=== PATIENT | male | born 1945 | race Caucasian/White ===

== ENCOUNTER 2017-03-11 16:44 | Emergency (ER) | payer MEDICARE, MEDICAID ==
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
[2017-03-11 17:37] LABS: % BASOPHILS 1.3 % (0.0-2.0); % EOSINOPHILS 2.2 % (0.0-5.0); % LYMPHOCYTES 26.3 % (20.0-50.0); % NEUTROPHILS 56.2 % (40.0-80.0); HEMATOCRIT 45.2 % (39.0-49.0); MEAN CELL VOLUME 94.6 fl (80-99); MEAN CORPUSCULAR HEMOGLOBIN 31.4 pg (27.0-31.0); MEAN CORPUSCULAR HGB CONC 33.2 pg (28.0-36.0); NEUTROPHILE ABSOLUTE 4.3 Th/cmm (1.8-8.0); PLATELET COUNT 115 Th/cmm (150-400); RED BLOOD COUNT 4.78 Mil/cmm (3.80-5.80); RED CELL DISTRIBUTION WIDTH 14.7 % (11.5-20.0)
[2017-03-11 17:38] LABS: WHITE BLOOD COUNT 7.7 Th/cmm (4.8-10.8)
[2017-03-11 17:57] LABS: ALB/GLOB RATIO 1.1 (1.0-1.8); ANION GAP 12.1 (7.0-16.0); BILIRUBIN,TOTAL 0.7 mg/dL (0.3-1.0); BUN/CREATININE RATIO 18.8; CALCIUM SERUM 9.4 mg/dL (8.6-10.3); CARBON DIOXIDE 24.2 mEq/L (21.0-31.0); CREATININE - SERUM 1.6 mg/dL (0.7-1.3); POTASSIUM SERUM 4.3 mEq/L (3.5-5.1)
[2017-03-11 18:09] LABS: URINE BACTERIA NONE SEEN /hpf (NONE SEEN); URINE BILIRUBIN NEGATIVE (NEGATIVE); URINE BLOOD TRACE (NEGATIVE); URINE COLOR YELLOW; URINE EPITHELIAL CELLS RARE /lpf (FEW); URINE GLUCOSE (UA) NEGATIVE (NEGATIVE); URINE KETONE NEGATIVE (NEGATIVE); URINE PROTEIN NEGATIVE (NEGATIVE); URINE RBC NONE SEEN /hpf (0-5); URINE UROBILINOGEN 0.2 E.U./dL (0.2 - 1.0); URINE WBC 0-2 /hpf (0-5)
== END 2017-03-11 19:20 | disposition home or self-care (01) ==
LOC: ER 16:44
DX: S50.811A Abrasion of right forearm, initial encounter (principal); S80.211A Abrasion, right knee, initial encounter; G40.909 Epilepsy, unspecified, not intractable, without status epilepticus; W19.XXXA Unspecified fall, initial encounter; Y93.89 Activity, other specified; Y92.89 Other specified places as the place of occurrence of the external cause; Y99.8 Other external cause status
CPT/HCPCS: 36415-UA; 80053-TC; 80164-TC; 81001-TC; 85025-TC; Z7502

== ENCOUNTER 2018-08-29 21:43 | Emergency (ER) | payer MEDICARE, MEDICAID ==
[2018-08-29 22:05] LABS: % BASOPHILS 0.6 % (0.0-2.0); % EOSINOPHILS 4.2 % (0.0-5.0); % LYMPHOCYTES 29.7 % (20.0-50.0); % MONOCYTES 13.9 % (2.0-10.0); % NEUTROPHILS 51.6 % (40.0-80.0); BASOPHILE ABSOLUTE 0.1 Th/cumm (0-0.2); EOSINOPHILE ABSOLUTE 0.4 Th/cmm (0.1-0.4); HEMATOCRIT 45.3 % (41.0-60); HEMOGLOBIN 14.7 gm/dL (12-16); LYMPHOCYTE ABSOLUTE 2.7 Th/cmm (1.5-3.0); MEAN CELL VOLUME 94.8 fl (80-99); MEAN CORPUSCULAR HEMOGLOBIN 30.7 pg (27.0-31.0); MEAN CORPUSCULAR HGB CONC 32.4 pg (28.0-36.0); MEAN PLATELET VOLUME 9.2 fl; MONOCYTE ABSOLUTE 1.3 Th/cmm (0.3-1.0); NEUTROPHILE ABSOLUTE 4.5 Th/cmm (1.8-8.0); PLATELET COUNT 139 Th/cmm (150-400); RED BLOOD COUNT 4.79 Mil/cmm (3.80-5.80); RED CELL DISTRIBUTION WIDTH 14.4 % (11.5-20.0)
[2018-08-29 22:19] LABS: ALBUMIN 3.6 gm/dL (4.2-5.5); ALKALINE PHOSPHATASE 74 U/L (34-104); ANION GAP 11.8 (7.0-16.0); BILIRUBIN,TOTAL 0.3 mg/dL (0.3-1.0); BUN - UREA NITROGEN 39 mg/dL (7-25); CALCIUM SERUM 9.2 mg/dL (8.6-10.3); CARBON DIOXIDE 25.6 mEq/L (21.0-31.0); CHLORIDE 108 mEq/L (98-107); CREATININE - SERUM 1.4 mg/dL (0.7-1.3); GLUCOSE 105 mg/dL (70-105); POTASSIUM SERUM 4.4 mEq/L (3.5-5.1); SGOT 17 U/L (13-39); SGPT/ALT 7 U/L (7-52); SODIUM SERUM 141 mEq/L (136-145); TOTAL PROTEIN,SERUM 7.2 gm/dL (6.0-8.3)
--- NOTE | 2018-08-29 23:21 | ED Physician Chart ---
ED Chief Complaint/HPI - Patient Information Date Seen:: 08/29/18 Time Seen:: 23:16 Chief Complaint:: agitation combativeness eg pains swelling History of Present Illness:: 73 yr old male from the snf for agitation cambativenes and leg swellig Allergies:: Allergies Allergy/AdvReac Type Severity Reaction Status Date / Time No Known Allergies Allergy Verified 03/11/17 17:05 Vitals:: Vital Signs - 8 hr 08/29/18 21:45 Temp 98.0 F HR 68 RR 17 BP 104/60 O2 Sat % 98 ED Review of Systems - Review of Systems General/Constitutional: No fever, No chills Head: No headache Eyes: No loss of vision Neck: No neck pain Cardio Vascular: No chest pain Pulmonary: No SOB GI: No nausea, No vomiting G/U: Dysuria, No dysuria, Frequency ED Past Medical History - Past Medical History Past Medical History: No significant medical hx Family Medical History - Family Member Mother History Unknown: Yes Ethnicity: ED Labs/Radiology/EKG Results - Lab Results Results: Laboratory Tests 08/29/18 08/29/18 08/29/18 21:40 21:40 21:40 WBC 9.0 RBC 4.79 Hgb 14.7 Hct 45.3 MCV 94.8 MCH 30.7 MCHC Differential 32.4 RDW 14.4 Plt Count 139 L MPV 9.2 Neutrophils % 51.6 Lymphocytes % 29.7 Monocytes % 13.9 H Eosinophils % 4.2 Basophils % 0.6 Sodium 141 Potassium 4.4 Chloride 108 H Carbon Dioxide 25.6 Anion Gap 11.8 BUN 39 H Creatinine 1.4 H Est GFR ( Amer) TNP Est GFR (Non-Af Amer) TNP BUN/Creatinine Ratio 27.9 Glucose 105 Calcium 9.2 Total Bilirubin 0.3 AST 17 ALT 7 Alkaline Phosphatase 74 B-Natriuretic Peptide 71.9 Total Protein 7.2 Albumin 3.6 L Globulin 3.6 Albumin/Globulin Ratio 1.0 ED Septic Shock - . Is Septic Shock (SBP<90, OR Lactate>4 mmol\L) present?: No - <6hrs of presentation: Vital Signs: Vital Signs - 8 hr 08/29/18 21:45 Temp 98.0 F HR 68 RR 17 BP 104/60 O2 Sat % 98 ED Reassessment (Disposition) - Diagnosis Diagnosis:: building construction - Aftercare/Follow up Instructions Aftercare/Follow-Up Instructions:: Counseled pt & family regarding lab results/ diagnosis & need follow up - Patient Disposition Discharge/Transfer:: Home Transport Method:: ACLS Admitted to:: Med/Surg
--- NOTE | 2018-08-30 08:25 | Diagnostic Imaging Report ---
EXAM: Doppler ultrasound examination of the lower extremities. HISTORY: DVT COMPARISON: None FINDINGS: Real-time ultrasound examination of lower extremities was performed utilizing color Doppler technique. The study demonstrates normal compressibility and augmentation of deep venous system throughout. IMPRESSION: No evidence for deep venous thrombosis lower extremities bilaterally.
--- NOTE | 2018-08-30 08:26 | Diagnostic Imaging Report ---
Portable chest x-ray Time: 2215 History: Cough Allowing for portable technique the heart size is normal. No focal pulmonary parenchymal processes. No hilar or mediastinal abnormalities. Mild atelectasis right base appreciated. Impression: No acute abnormalities.
== END 2018-08-30 00:16 ==
LOC: ER 21:43
DX: F29 Unspecified psychosis not due to a substance or known physiological condition (principal); M79.606 Pain in leg, unspecified; R35.0 Frequency of micturition; Z79.899 Other long term (current) drug therapy
CPT/HCPCS: 36415-UA; 71045-TC; 80053-TC; 83880-TC; 84484-TC; 85025-TC; 93005; 93970-TC-50; J0696

== ENCOUNTER 2018-09-21 14:52 | Inpatient (IN) | payer MEDICARE, MEDICAID ==
[2018-09-21] MEDS ORDERED: ceFAZolin 1 GM in Sodium Chloride 0.9% 50 ML IV ONE (15:24)
[2018-09-21] MEDS ORDERED: Lactated Ringer 1,000 ML IV ONE (15:37)
--- NOTE | 2018-09-21 15:46 | ED Physician Chart ---
ED Chief Complaint/HPI - Patient Information Date Seen:: 09/21/18 Time Seen:: 15:11 Chief Complaint:: RLE laceration History of Present Illness:: RLE laceration Allergies:: Allergies Allergy/AdvReac Type Severity Reaction Status Date / Time No Known Allergies Allergy Verified 03/11/17 17:05 Vitals:: Vital Signs - 8 hr 09/21/18 15:11 Temp 98.2 F HR 67 RR 17 BP 127/69 O2 Sat % 98 Historian:: Medical Records Review:: Nurse's Note Reviewed, Transfer documents Reviewed ED Review of Systems - Review of Systems General/Constitutional: No fever, No chills, No weight loss, No weakness, No diaphoresis, No edema, No loss of appetite Skin: Other (RLE laceration that measures 4 inches in size with visible muscle at base. Skin retracted. RLE has rubor (chronically)) Head: No headache, No light-headedness Eyes: No loss of vision, No pain, No diplopia ENT: No earache, No nasal drainage, No sore throat, No tinnitus Neck: No neck pain, No swelling, No thyromegaly, No stiffness, No mass noted Cardio Vascular: No chest pain, No palpitations, No PND, No orthopnea, No edema Pulmonary: No SOB, No cough, No sputum, No wheezing GI: No nausea, No vomiting, No diarrhea, No pain, No melena, No hematochezia, No constipation, No hematemesis G/U: No dysuria, No frequency, No hematuria Musculoskeletal: No bone or joint pain, No back pain, Muscle pain, Other (Other (RLE laceration that measures 4 inches in size with visible muscle at base. Skin retracted. RLE has rubor (chronically))) Endocrine: No polyuria, No polydipsia Psychiatric: Prior psych history, Depression, No anxiety, No suicidal ideation, No homicidal ideation, No auditory hallucination, No visual hallucination Hematopoietic: No bruising, No lymphadenopathy Allergic/Immuno: No urticaria, No angioedema Neurological: No syncope, No focal symptoms, No weakness, No paresthesia, No headache, No seizure, No dizziness, No confusion, No vertigo ED Past Medical History - Past Medical History Obtainable: No Past Medical History: PUD/GERD, Other (anemia; dementia) Psychiatricy History: Depression, Dementia, Other (psychosis) Family Medical History - Family Member Mother History Unknown: Yes Ethnicity: ED Physical Exam - Physical Examination General/Constitutional: Awake, Well-developed, well-nourished, Alert, Non-toxic appearing Head: Atraumatic Eyes: Lids, conjuctiva normal, PERRL Other Skin comments:: Other (RLE laceration that measures 4 inches in size with visible muscle at base. Skin retracted. RLE has rubor (chronically)) ENMT: External ears, nose nl Neck: Nontender, No nuchal rigidity Respiratory: Nl effort/Exclusion, Clear to Auscultation, No Wheeze/Rhonchi/Rales Cardio Vascular: RRR, No murmur, gallop, rubs, NL S1 S2 GI: No tenderness/rebounding/guarding, No organomegaly Other Extremities comments:: Other (RLE laceration that measures 4 inches in size with visible muscle at base. Skin retracted. RLE has rubor (chronically)) Evidence of peripheral vascular disease. No s/s of compartment syndrome. Neuro/Psych: Alert/oriented, Mood normal ED Assessment - Assessment General Assessment: RLE xray (by my reading): muscle loss/deep laceration into the right peroneus muscles)---air tracks into muscle. CXR: atelectasis (minimal on the right) by my reading. preop EKG from 16:02:19 p.m. normal sinus rhythm, movement artifact. spoke to Dr. Brown at 15:45 who sent this patient to us. I told him that I do not feel comfortable doing this procedure in the emergency room since it is deep and involves the peroneus muscles. Dr. Brown agreed with my plan and asked for me to call the surgeon art conservator, Dr. Harper. Dr. Harper called through his office at 15:53. Dr. Da Silva was called again at 4:10 p.m. He is in surgery (he is art conservator today for [facility]) and got the message. Will call Dr. Jaime now since Dr. Brown had asked about Dr. Jaime at first. Dr. Jaime will come in to do the case. Assessment/Comments:: spoke to Dr. Jaime at 4:15 p.m. He will come in an do the procedure. He asked for me to call in the OR team. I called the nursing volunteer services supervisor and asked for her to call in the crew. called Dr. Brown 2 times to update on above and to recommend admit of the patient postop. No answer from Dr. Brown. Called Dr. Mcfarland since [facility] Call at 17:49 p.m. He said that he just talked to Dr. Brown and will have him call me back. patient taken to the operating room. ED Septic Shock - . Is Septic Shock (SBP<90, OR Lactate>4 mmol\L) present?: No - <6hrs of presentation: Vital Signs: Vital Signs - 8 hr 09/21/18 15:11 Temp 98.2 F HR 67 RR 17 BP 127/69 O2 Sat % 98 ED Reassessment (Disposition) - Reassessment Reassessment Condition:: Unchanged - Diagnosis Diagnosis:: Deep RLE laceration with obvious muscle involvement Dehydration, prerenal Renal insufficiency Hypothyroidism, not corrected Elevated valproic acid GERD Anemia Dementia Depression Psychosis - Patient Disposition Discharge/Transfer:: Acute Care w/in this hosp Condition at Disposition:: Stable, Unchanged
[2018-09-21 15:47] LABS: % BASOPHILS 0.2 % (0.0-2.0); % EOSINOPHILS 2.4 % (0.0-5.0); % LYMPHOCYTES 23.1 % (20.0-50.0); % MONOCYTES 13.4 % (2.0-10.0); % NEUTROPHILS 60.9 % (40.0-80.0); EOSINOPHILE ABSOLUTE 0.2 Th/cmm (0.1-0.4); HEMATOCRIT 47.2 % (41.0-60); HEMOGLOBIN 15.7 gm/dL (12-16); LYMPHOCYTE ABSOLUTE 2.4 Th/cmm (1.5-3.0); MEAN CELL VOLUME 93.4 fl (80-99); MEAN CORPUSCULAR HEMOGLOBIN 31.1 pg (27.0-31.0); MEAN CORPUSCULAR HGB CONC 33.3 pg (28.0-36.0); MEAN PLATELET VOLUME 8.2 fl; MONOCYTE ABSOLUTE 1.4 Th/cmm (0.3-1.0); NEUTROPHILE ABSOLUTE 6.4 Th/cmm (1.8-8.0); PLATELET COUNT 179 Th/cmm (150-400); RED BLOOD COUNT 5.05 Mil/cmm (3.80-5.80); RED CELL DISTRIBUTION WIDTH 14.4 % (11.5-20.0); WHITE BLOOD COUNT 10.4 Th/cmm (4.8-10.8)
[2018-09-21 16:10] LABS: ALBUMIN 3.6 gm/dL (4.2-5.5); ALKALINE PHOSPHATASE 92 U/L (34-104); BILIRUBIN,TOTAL 0.4 mg/dL (0.3-1.0); BUN - UREA NITROGEN 32 mg/dL (7-25); CHLORIDE 104 mEq/L (98-107); CREATININE - SERUM 1.5 mg/dL (0.7-1.3); GLUCOSE 102 mg/dL (70-105); MAGNESIUM 2.3 mg/dL (1.9-2.7); PHOSPHOROUS 3.4 mg/dL (2.5-5.0); SGOT 23 U/L (13-39); SGPT/ALT 12 U/L (7-52); SODIUM SERUM 138 mEq/L (136-145); TOTAL PROTEIN,SERUM 7.2 gm/dL (6.0-8.3); VALPROIC ACID 114.9 ug/mL (50.0-100.0)
[2018-09-21] MEDS ORDERED: fentaNYL Citrate 100 mcg/2mL Vial ONE (17:59)
[2018-09-21] MEDS ORDERED: Neostigmine 10mg/10mL Vial ONE (18:10)
[2018-09-21] MEDS ORDERED: Propofol **SURGERY USE ONLY** 20 ML IV ONE (18:10)
[2018-09-21] MEDS ORDERED: Triple Antibiotic 0.94 gm Pkt TP ONE ×2 (18:23→19:08)
[2018-09-21] MEDS: D5-0.45NS 1,000 ML IV SCH (20:49)
[2018-09-21] MEDS ORDERED: TOPIRAMATE 200 MG PO SCH (21:00)
[2018-09-21] MEDS: Cefepime 1 GM in Sodium Chloride 0.9% 50 ML IV SCH (21:32)
[2018-09-22 05:05] LABS: % EOSINOPHILS 3.1 % (0.0-5.0); % MONOCYTES 14.2 % (2.0-10.0); % NEUTROPHILS 59.7 % (40.0-80.0); BASOPHILE ABSOLUTE 0.1 Th/cumm (0-0.2); EOSINOPHILE ABSOLUTE 0.3 Th/cmm (0.1-0.4); HEMOGLOBIN 13.3 gm/dL (12-16); MEAN CELL VOLUME 94.3 fl (80-99); MEAN CORPUSCULAR HEMOGLOBIN 31.9 pg (27.0-31.0); MEAN CORPUSCULAR HGB CONC 33.8 pg (28.0-36.0); MEAN PLATELET VOLUME 8.1 fl; MONOCYTE ABSOLUTE 1.3 Th/cmm (0.3-1.0); NEUTROPHILE ABSOLUTE 5.6 Th/cmm (1.8-8.0); PLATELET COUNT 142 Th/cmm (150-400); RED BLOOD COUNT 4.18 Mil/cmm (3.80-5.80); RED CELL DISTRIBUTION WIDTH 14.1 % (11.5-20.0); WHITE BLOOD COUNT 9.3 Th/cmm (4.8-10.8)
[2018-09-22 05:15] LABS: HEMATOCRIT 39.4 % (41.0-60)
[2018-09-22 05:32] LABS: ALBUMIN 2.5 gm/dL (4.2-5.5); ALKALINE PHOSPHATASE 48 U/L (34-104); BILIRUBIN,TOTAL 0.4 mg/dL (0.3-1.0); BUN - UREA NITROGEN 25 mg/dL (7-25); CALCIUM SERUM 7.6 mg/dL (8.6-10.3); CARBON DIOXIDE 23.9 mEq/L (21.0-31.0); CHLORIDE 112 mEq/L (98-107); CREATININE - SERUM 1.2 mg/dL (0.7-1.3); GLUCOSE 91 mg/dL (70-105); POTASSIUM SERUM 3.9 mEq/L (3.5-5.1); SGOT 14 U/L (13-39); SGPT/ALT 7 U/L (7-52); SODIUM SERUM 140 mEq/L (136-145)
[2018-09-22] MEDS ORDERED: Polyvinyl Alcohol Ophth Soln 15 mL Bottle EACH EYE PRN (07:32)
--- NOTE | 2018-09-22 08:10 | Diagnostic Imaging Report ---
Right tibia/fibula (2 views) HISTORY: Pain Soft tissue disruption noted over the lateral aspect of the lower leg at the level of the mid fibula. Somewhat heterogeneous hyperdensity noted. Findings may be associated with debris and should be correlated clinically and with physical examination. No acute focal bony abnormalities are seen. Soft tissue calcifications probably vascular are seen. IMPRESSION: 1. No acute focal bony abnormalities 2. Soft tissue disruption over the lateral lateral aspect of the left lower leg. Associated hyperdensity may be associated with debris. The findings should be correlated clinically and with physical examination.
--- NOTE | 2018-09-22 08:10 | Diagnostic Imaging Report ---
Portable chest x-ray History: Cough, preoperative Allowing for portable technique the heart size is normal. No focal pulmonary parenchymal processes. No hilar or mediastinal abnormalities. Several old right rib fractures are seen. Impression: No acute abnormalities.
[2018-09-22] MEDS: Levothyroxine 0.05 Mg Tab PO SCH (08:44)
[2018-09-22] MEDS: Vitamin D3 2,000 IU SGL PO SCH (08:44)
[2018-09-22] MEDS: Cefepime 1 GM in Sodium Chloride 0.9% 50 ML IV SCH ×2 (08:44→20:27)
[2018-09-22] MEDS: Multivitamin w/ Minerals Tab PO SCH (08:44)
[2018-09-22] MEDS: Polyvinyl Alcohol Ophth Soln 15 mL Bottle EACH EYE SCH ×2 (08:59→17:40)
[2018-09-22] MEDS ORDERED: CYCLOSPORINE OP SCH (09:00)
[2018-09-22] MEDS ORDERED: NAFTIFINE HCL TP SCH (09:00)
[2018-09-22] MEDS ORDERED: POLYVINYL ALCOHOL OP SCH (09:00)
[2018-09-22] MEDS: Vancomycin HCl 500 MG in Sodium Chloride 0.9% 100 ML IV SCH ×2 (09:29→21:00)
[2018-09-22] MEDS ORDERED: Influenza Vaccine (65 yr & older) 0.5 ml Syr IM ONE (10:00)
[2018-09-22] MEDS ORDERED: Hydrocodone/APAP 10 mg/325 mg Tab PO PRN (10:38)
--- NOTE | 2018-09-22 10:50 | General Progress Note ---
Subjective - Review of Systems Service Date: 09/22/18 Events since last encounter: right foot not dusky as last night doppler venous and arterial studies ordered Objective - Results Result Diagrams: 09/22/18 04:55 09/22/18 04:55 Recent Labs: Laboratory Last Values WBC 9.3 Th/cmm (4.8-10.8) 09/22/18 04:55 RBC 4.18 Mil/cmm (3.80-5.80) 09/22/18 04:55 Hgb 13.3 gm/dL (12-16) 09/22/18 04:55 Hct 39.4 % (41.0-60) L D 09/22/18 04:55 MCV 94.3 fl (80-99) 09/22/18 04:55 MCH 31.9 pg (27.0-31.0) H 09/22/18 04:55 MCHC Differential 33.8 pg (28.0-36.0) 09/22/18 04:55 RDW 14.1 % (11.5-20.0) 09/22/18 04:55 Plt Count 142 Th/cmm (150-400) L 09/22/18 04:55 MPV 8.1 fl 09/22/18 04:55 Neutrophils % 59.7 % (40.0-80.0) 09/22/18 04:55 Lymphocytes % 22.0 % (20.0-50.0) 09/22/18 04:55 Monocytes % 14.2 % (2.0-10.0) H 09/22/18 04:55 Eosinophils % 3.1 % (0.0-5.0) 09/22/18 04:55 Basophils % 1.0 % (0.0-2.0) 09/22/18 04:55 Sodium 140 mEq/L (136-145) 09/22/18 04:55 Potassium 3.9 mEq/L (3.5-5.1) 09/22/18 04:55 Chloride 112 mEq/L (98-107) H 09/22/18 04:55 Carbon Dioxide 23.9 mEq/L (21.0-31.0) 09/22/18 04:55 Anion Gap 8.0 (7.0-16.0) 09/22/18 04:55 BUN 25 mg/dL (7-25) 09/22/18 04:55 Creatinine 1.2 mg/dL (0.7-1.3) 09/22/18 04:55 Est GFR ( Amer) TNP 09/22/18 04:55 Est GFR (Non-Af Amer) TNP 09/22/18 04:55 BUN/Creatinine Ratio 20.8 09/22/18 04:55 Glucose 91 mg/dL (70-105) 09/22/18 04:55 Calcium 7.6 mg/dL (8.6-10.3) L 09/22/18 04:55 Phosphorus 3.4 mg/dL (2.5-5.0) 09/21/18 15:40 Magnesium 2.3 mg/dL (1.9-2.7) 09/21/18 15:40 Total Bilirubin 0.4 mg/dL (0.3-1.0) 09/22/18 04:55 AST 14 U/L (13-39) 09/22/18 04:55 ALT 7 U/L (7-52) 09/22/18 04:55 Alkaline Phosphatase 48 U/L (34-104) 09/22/18 04:55 Total Protein 5.0 gm/dL (6.0-8.3) L 09/22/18 04:55 Albumin 2.5 gm/dL (4.2-5.5) L 09/22/18 04:55 Globulin 2.5 gm/dL 09/22/18 04:55 Albumin/Globulin Ratio 1.0 (1.0-1.8) 09/22/18 04:55 TSH 9.46 uIU/ml (0.34-5.60) H 09/21/18 15:40 Valproic Acid 114.9 ug/mL (50.0-100.0) H 09/21/18 15:40 - Physical Exam Vitals and I&O: Vital Signs Temp 96.1 F 09/22/18 08:00 Pulse 53 09/22/18 08:00 Resp 17 09/22/18 08:00 BP 114/58 09/22/18 08:00 Pulse Ox 96 09/22/18 08:00 Intake & Output 09/21/18 09/22/18 09/22/18 18:59 06:59 18:59 Intake Total 290 Balance 290 Weight (lbs) 77.111 kg 78.925 kg Intake: Intake, IV Amount 50 Cefepime 1 gm In Sodium 50 Chloride 0.9% 50 ml @ 100 mls/hr IV Q12HR [facility] Rx#: [id number] Oral 240 Other: # Voids 2 # Bowel Movements 0 Weight Source Estimated Bedscale Active Medications: Current Medications Acetaminophen/Hydrocodone Bitart ([place] 10 Mg/325 Mg) 1 tab PO Q4H PRN PRN Reason: Pain (Moderate) Stop: 11/21/18 10:37 Artificial Tears (Artificial Tears Ophth Soln) 1 drop EACH EYE BID [facility] Stop: 11/21/18 07:31 Last Admin: 09/22/18 08:59 Dose: 1 drop Divalproex Sodium (Depakote Dr) 500 mg PO BID [facility]; Protocol Stop: 11/21/18 08:59 Last Admin: 09/22/18 08:44 Dose: 500 mg Fluocinonide (Lidex 0.05%) 1 appl TP BID [facility] Stop: 11/21/18 08:59 Last Admin: 09/22/18 08:59 Dose: 1 appl Folic Acid (Folate) 1 mg PO DAILY [facility] Stop: 11/21/18 08:59 Last Admin: 09/22/18 08:44 Dose: 1 mg Cefepime HCl 1 gm/ Sodium (Chloride) 50 mls @ 100 mls/hr IV Q12HR [facility] Stop: 11/20/18 20:59 Last Admin: 09/22/18 08:44 Dose: 100 mls/hr Dextrose/Sodium Chloride (D5-0.45ns) 1,000 mls @ 75 mls/hr IV .[id number] [facility] Stop: 11/20/18 20:29 Last Admin: 09/21/18 20:49 Dose: 75 mls/hr Vancomycin HCl 500 mg/ Sodium (Chloride) 100 mls @ 100 mls/hr IV Q12HR [facility] Stop: 11/21/18 08:59 Last Admin: 09/22/18 09:29 Dose: 100 mls/hr Levothyroxine Sodium (Synthroid) 0.05 mg PO DAILY [facility] Stop: 11/21/18 08:59 Last Admin: 09/22/18 08:44 Dose: 0.05 mg Mirtazapine (Remeron) 7.5 mg PO HS [facility]; Protocol Stop: 11/20/18 20:59 Last Admin: 09/21/18 21:55 Dose: 7.5 mg Miscellaneous (Vancomycin Iv Per Pharmacy) 1 ea MC PRN PRN PRN Reason: PROTOCOL Stop: 11/20/18 19:46 Miscellaneous (Cyclosporine [Restasis]) 1 each OP BID [facility] Stop: 11/21/18 08:59 Miscellaneous (Naftifine Hcl [Naftin]) 1 appl TP BID [facility] Stop: 11/21/18 08:59 Quetiapine Fumarate (Seroquel) 50 mg PO DAILY [facility]; Protocol Stop: 11/21/18 08:59 Last Admin: 09/22/18 08:44 Dose: 50 mg Quetiapine Fumarate (Seroquel) 50 mg PO HS [facility]; Protocol Stop: 11/20/18 20:59 Last Admin: 09/21/18 21:57 Dose: 50 mg Topiramate (Topamax) 200 mg PO [facility] Stop: 11/20/18 21:44 Last Admin: 09/21/18 21:55 Dose: 200 mg Vitamin D (Vitamin D3) 2,000 iu PO DAILY [facility] Stop: 11/21/18 08:59 Last Admin: 09/22/18 08:44 Dose: 2,000 iu - Procedures Procedures: Procedures Procedure Code Date GROUP PSYCHOTHERAPY 14662 09/28/15 GROUP PSYCHOTHERAPY [id number] 09/28/15 Assessment/Plan - Problem List Patient Problems: All Active Problems LACERATION TO RIGHT LOWER LEG (Acute)
[2018-09-22] MEDS: D5-0.45NS 1,000 ML IV SCH (17:41)
--- NOTE | 2018-09-22 18:40 | History & Physical ---
ADMIT DATE: 09/22/2018 PATIENT'S IDENTIFICATION: A 73-year-old male. CHIEF COMPLAINT: "I had an injury on my right leg." HISTORY OF PRESENT ILLNESS: A 73-year-old resident of [facility] has history of psychotic disorder, hypertension, congestive heart failure, seizure disorder, presented to the Emergency Room on 09/21/2018 for evaluation of right leg injury. The patient was evaluated by Emergency Room MD noted to have right lower extremity lacerated wound approximately 4 inches in size with a small visible muscle at the base. The patient was seen by surgeon and subsequently admitted to the hospital postoperatively after the patient was planned to taken surgery. PAST MEDICAL HISTORY: Remarkable for: 1. Hypertension. 2. Seizure disorder. 3. Systolic heart failure. 4. Psychotic disorder. 5. DJD. MEDICATIONS AT HOME: The patient is taking multiple medications, which include Depakote, Lidex cream, folate, levothyroxine, Remeron, hydrocodone, folic acid, Lasix, Seroquel. ALLERGIES: The patient is not allergic to medications. SOCIAL HISTORY: The patient resides in a [facility]. No smoking cigarette, alcohol, or drug use. FAMILY MEDICAL HISTORY: Unknown. REVIEW OF SYSTEMS: The patient currently denies any headache, blurred vision, double vision, dysphagia, odynophagia, runny nose, stuffy nose, fever, chills, cough, chest pain, shortness of breath, palpitation, dizziness, nausea, vomiting, diarrhea, dysuria, hematuria, hematochezia, or melena. PHYSICAL EXAMINATION: GENERAL: The patient is alert, awake, lying in the bed without any acute distress. VITAL SIGNS: Temperature 96.7, pulse is 54, respiratory rate 18, blood pressure 126/40. HEENT: Normocephalic, atraumatic. Extraocular muscles are intact. Tongue was pink and coated. Poor dentition noted. No oral lesions, no exudate. No sinus tenderness. NECK: Supple, no JVD, no hepatojugular reflex. No lymphadenopathy. No thyromegaly. No carotid bruit. HEART: Both heart sounds are regular. No S3, no S4, no murmur. CHEST AND LUNGS: Equal in expansion, no expiratory wheezing. ABDOMEN: Soft. No guarding, no rigidity. Liver and spleen not palpable. No palpable mass. EXTREMITIES: Remarkable for right lower extremity swelling noted with intact dressings noted. Peripheral pulses +1. No calf tenderness. NEUROLOGIC: Alert, awake, follows commands. AVAILABLE DIAGNOSTIC DATA: White count of 10.4, hemoglobin 15.7, platelet count of 179. BUN and creatinine is 32 and 1.5, potassium of 4, albumin of 3.6. TSH of 9.46, valproic acid 114.9. CLINICAL IMPRESSIONS: 1. Status post lacerated wound on the right lower extremity, needs debridement and closure. 2. Acute kidney injury. 3. Hypothyroidism. 4. Depakote toxicity. 5. Seizure disorder. 6. Psychotic disorder. 7. Dementia. 8. Hypertension. 9. Congestive heart failure. 10. Decline in self-care and mobility. PLAN: 1. Admit this patient hospital. 2. IV fluid. 3. Discontinue Lasix, potassium. 4. Adjust dose of Synthroid. 5. Appropriate home medicine reconciliation. 6. Postop care by Dr. Jaime. 7. Infectious Disease to follow. 8. IV vancomycin and Maxipime. 9. Decrease the dose of Depakote. 10. Follow lab. 11. Follow consult recommendation. 12. Care plan reviewed and discussed with staff. JOB# [id number]
[2018-09-23] MEDS: D5-0.45NS 1,000 ML IV SCH ×2 (06:29→23:03)
[2018-09-23] MEDS: Cefepime 1 GM in Sodium Chloride 0.9% 50 ML IV SCH ×2 (08:58→20:11)
[2018-09-23] MEDS: Polyvinyl Alcohol Ophth Soln 15 mL Bottle EACH EYE SCH ×2 (09:00→16:52)
[2018-09-23] MEDS: Levothyroxine 0.05 Mg Tab PO SCH (09:00)
[2018-09-23] MEDS: Vitamin D3 2,000 IU SGL PO SCH (09:00)
[2018-09-23] MEDS: Multivitamin w/ Minerals Tab PO SCH (09:01)
[2018-09-23] MEDS: Vancomycin HCl 500 MG in Sodium Chloride 0.9% 100 ML IV SCH ×2 (09:01→21:28)
--- NOTE | 2018-09-23 09:43 | Diagnostic Imaging Report ---
Bilateral lower extremity Doppler arterial ultrasound exam HISTORY: Peripheral vascular disease, pain Sonographic sector images were obtained through the arterial systems of both legs. Associated Doppler data was obtained. The exam of the right leg demonstrates triphasic waveforms within the common femoral and superficial femoral arteries. Biphasic waveforms are noted within the popliteal, anterior tibial, posterior tibial arteries. Monophasic waveforms seen within the right dorsalis pedis artery region. Sonographic images demonstrate mild diffuse atherosclerotic changes. The ankle-brachial index could not be obtained due to surgical change. The left leg demonstrates triphasic waveforms within the common femoral, superficial femoral, popliteal arteries. Biphasic waveforms noted within the anterior and posterior tibial arteries. Monophasic waveforms seen within the left dorsalis pedis artery. Slight increase in velocity noted within the anterior and posterior tibial arteries. The ankle-brachial index could not be obtained due to limitations associated with prior surgery. Sonographic images demonstrate mild diffuse atherosclerotic change. No significant narrowing or stenosis is seen. IMPRESSION: 1. Somewhat limited exam due to recent surgery 2. Evidence of mild diffuse atherosclerotic changes. No definite significant narrowing/stenosis identified.
--- NOTE | 2018-09-23 09:43 | Diagnostic Imaging Report ---
Bilateral lower extremity Doppler venous ultrasound exam HISTORY: Pain/swelling Sonographic sector images were obtained through the deep venous systems of both legs. Associated Doppler data was obtained. The exam demonstrates patency of the common femoral, superficial femoral, popliteal, and posterior tibial veins bilaterally. Specifically, no thrombus is seen. There are normal compressibility and augmentation responses. IMPRESSION: Negative exam for deep vein thrombophlebitis.
--- NOTE | 2018-09-23 10:52 | Operative Report ---
DATE OF SURGERY: 09/21/2018 PREOPERATIVE DIAGNOSES: 1. Laceration, right leg. 2. Hypertension. 3. Seizure disorder. 4. Psychotic disorder. POSTOPERATIVE DIAGNOSES: 1. Laceration, right leg. 2. Hypertension. 3. Seizure disorder. 4. Psychotic disorder. OPERATION DONE: 1. Excisional debridement of right leg open wound. 2. Primary closure, 5 x 5 size of the wound, 10 cm jagged and open to the fascia. ANESTHESIA: General anesthesia was just covered. ESTIMATED BLOOD LOSS: None. DESCRIPTION OF PROCEDURE: The patient was given general anesthesia. The right leg was prepped with Betadine and draped in appropriate manner. Sharp debridement was carried out to remove all necrotic tissues. Prior to this, cultures were taken. Following satisfactory debridement, the subcutaneous tissues were closed with interrupted sutures of 4-0 Vicryl and the skin was closed with 4-0 nylon. Sterile dressing was placed over this. The patient tolerated the procedure well. [facility]# [id number]
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
--- NOTE | 2018-09-23 23:15 | Progress Notes ---
DATE: 09/23/2018 PATIENT'S IDENTIFICATION: A 73-year-old male. SUBJECTIVE: The patient was seen and examined. The patient is lying comfortably. Lower extremity arterial Doppler studies are unremarkable for any vascular injury. Diffuse mild atherosclerotic arterial disease noted. The patient discussed with nursing staff, no new event noted. OBJECTIVE: VITAL SIGNS: Temperature 97, pulse 52, respiratory rate 20, blood pressure 102/55. HEENT: No facial asymmetry. NECK: Supple, no JVD. HEART: Regular. CHEST AND LUNGS: Equal in expansion, no expiratory wheezing. ABDOMEN: Soft, no guarding, no rigidity. Bowel sounds present. No palpable mass. EXTREMITIES: Right lower extremity edema noted with no calf tenderness. Peripheral +1. Intact dressing noted. CLINICAL IMPRESSION: 1. Status post debridement and closure of the right lower extremity wound. 2. Acute kidney injury. 3. Hypothyroidism. 4. Depakote toxicity. 5. Seizure disorder. 6. Dementia. 7. Hypertension. 8. Congestive heart failure. PLAN: 1. In the view of his medical problems, the patient will be receiving IV fluid. 2. Correct electrolytes. 3. General nursing care. 4. IV antibiotic empirically. 5. Postop care as per Dr. Jaime. 6. Follow up lab. 7. PT, OT after cleared by surgeon. 8. Discharge planning. JOB# [id number]
[2018-09-24 04:55] LABS: BASOPHILE ABSOLUTE 0.1 Th/cumm (0-0.2); EOSINOPHILE ABSOLUTE 0.7 Th/cmm (0.1-0.4); HEMATOCRIT 39.1 % (41.0-60); HEMOGLOBIN 13.1 gm/dL (12-16); MEAN CELL VOLUME 93.7 fl (80-99); MEAN CORPUSCULAR HEMOGLOBIN 31.3 pg (27.0-31.0); MEAN CORPUSCULAR HGB CONC 33.4 pg (28.0-36.0); MEAN PLATELET VOLUME 8.7 fl; MONOCYTE ABSOLUTE 1.4 Th/cmm (0.3-1.0); NEUTROPHILE ABSOLUTE 4.2 Th/cmm (1.8-8.0); PLATELET COUNT 120 Th/cmm (150-400); RED BLOOD COUNT 4.17 Mil/cmm (3.80-5.80); RED CELL DISTRIBUTION WIDTH 14.2 % (11.5-20.0); WHITE BLOOD COUNT 8.4 Th/cmm (4.8-10.8)
[2018-09-24 05:17] LABS: ANION GAP 9.9 (7.0-16.0); BUN - UREA NITROGEN 24 mg/dL (7-25); CALCIUM SERUM 8.1 mg/dL (8.6-10.3); CARBON DIOXIDE 20.1 mEq/L (21.0-31.0); CHLORIDE 115 mEq/L (98-107); CREATININE - SERUM 1.1 mg/dL (0.7-1.3); GLUCOSE 96 mg/dL (70-105); SODIUM SERUM 141 mEq/L (136-145)
[2018-09-24] MEDS: Vancomycin HCl 500 MG in Sodium Chloride 0.9% 100 ML IV SCH (08:51)
[2018-09-24] MEDS: Levothyroxine 0.05 Mg Tab PO SCH (08:56)
[2018-09-24] MEDS: Vitamin D3 2,000 IU SGL PO SCH ×2 (08:56→10:19)
[2018-09-24] MEDS: Multivitamin w/ Minerals Tab PO SCH ×2 (08:57→10:20)
[2018-09-24] MEDS ORDERED: Ammonium Lactate Cream 140 gm Tube TP SCH (09:00)
[2018-09-24] MEDS: Polyvinyl Alcohol Ophth Soln 15 mL Bottle EACH EYE SCH ×2 (10:20→11:38)
[2018-09-24] MEDS: Cefepime 1 GM in Sodium Chloride 0.9% 50 ML IV SCH (10:22)
--- NOTE | 2018-09-24 13:36 | Infectious Disease Prog Note ---
Infectious Disease Subjective - Review of Systems Service Date: 09/24/18 Subjective: No new change, no fever. Infectious Disease Objective - Results Result Diagrams: 09/24/18 04:30 09/24/18 04:30 Recent Labs: Laboratory Last Values WBC 8.4 Th/cmm (4.8-10.8) 09/24/18 04:30 RBC 4.17 Mil/cmm (3.80-5.80) 09/24/18 04:30 Hgb 13.1 gm/dL (12-16) 09/24/18 04:30 Hct 39.1 % (41.0-60) L 09/24/18 04:30 MCV 93.7 fl (80-99) 09/24/18 04:30 MCH 31.3 pg (27.0-31.0) H 09/24/18 04:30 MCHC Differential 33.4 pg (28.0-36.0) 09/24/18 04:30 RDW 14.2 % (11.5-20.0) 09/24/18 04:30 Plt Count 120 Th/cmm (150-400) L 09/24/18 04:30 MPV 8.7 fl 09/24/18 04:30 Add Manual Diff YES 09/24/18 04:30 Neutrophils % 57.0 % (40.0-80.0) 09/24/18 04:30 Lymphocytes % 24.0 % (20.0-50.0) 09/24/18 04:30 Monocytes % 9.0 % (2.0-10.0) 09/24/18 04:30 Eosinophils % 6.0 % (0.0-5.0) H 09/24/18 04:30 Basophils % 1.0 % (0.0-2.0) 09/22/18 04:55 Neutrophils (Manual) Not Reportable 09/24/18 04:30 Sodium 141 mEq/L (136-145) 09/24/18 04:30 Potassium 4.0 mEq/L (3.5-5.1) 09/24/18 04:30 Chloride 115 mEq/L (98-107) H 09/24/18 04:30 Carbon Dioxide 20.1 mEq/L (21.0-31.0) L 09/24/18 04:30 Anion Gap 9.9 (7.0-16.0) 09/24/18 04:30 BUN 24 mg/dL (7-25) 09/24/18 04:30 Creatinine 1.1 mg/dL (0.7-1.3) 09/24/18 04:30 Est GFR ( Amer) TNP 09/24/18 04:30 Est GFR (Non-Af Amer) TNP 09/24/18 04:30 BUN/Creatinine Ratio 21.8 09/24/18 04:30 Glucose 96 mg/dL (70-105) 09/24/18 04:30 Calcium 8.1 mg/dL (8.6-10.3) L 09/24/18 04:30 Phosphorus 3.4 mg/dL (2.5-5.0) 09/21/18 15:40 Magnesium 2.3 mg/dL (1.9-2.7) 09/21/18 15:40 Total Bilirubin 0.4 mg/dL (0.3-1.0) 09/22/18 04:55 AST 14 U/L (13-39) 09/22/18 04:55 ALT 7 U/L (7-52) 09/22/18 04:55 Alkaline Phosphatase 48 U/L (34-104) 09/22/18 04:55 Total Protein 5.0 gm/dL (6.0-8.3) L 09/22/18 04:55 Albumin 2.5 gm/dL (4.2-5.5) L 09/22/18 04:55 Globulin 2.5 gm/dL 09/22/18 04:55 Albumin/Globulin Ratio 1.0 (1.0-1.8) 09/22/18 04:55 TSH 9.46 uIU/ml (0.34-5.60) H 09/21/18 15:40 Vancomycin Trough 10.8 ug/mL (5-10) H 09/23/18 04:44 Valproic Acid 114.9 ug/mL (50.0-100.0) H 09/21/18 15:40 - Physical Exam Vitals and I&O: Vital Signs Temp 97.9 F 09/24/18 04:00 Pulse 20 09/24/18 04:00 Resp 20 09/24/18 08:00 BP 100/53 09/24/18 04:00 Pulse Ox 97 09/24/18 04:00 Intake & Output 09/23/18 09/24/18 09/24/18 18:59 06:59 18:59 Intake Total 700 1150 Output Total 800 Balance -100 1150 Weight (lbs) 78.925 kg 81.057 kg Intake: Intake, IV Amount 150 1150 Cefepime 1 gm In Sodium 50 50 Chloride 0.9% 50 ml @ 100 mls/hr IV Q12HR [facility] Rx#: [id number] D5-0.45NS 1,000 ml @ 75 1000 mls/hr IV .[id number] [facility] Rx #:[id number] Vancomycin HCl 500 mg In 100 100 Sodium Chloride 0.9% 100 ml @ 100 mls/hr IV Q12HR [facility] Rx#:[id number] Oral 550 Output: Urine 800 Other: # Voids 2 # Bowel Movements 1 0 Weight Source Bedscale Bedscale Active Medications: Current Medications Acetaminophen/Hydrocodone Bitart ([place] 10 Mg/325 Mg) 1 tab PO Q4H PRN PRN Reason: Pain (Moderate) Stop: 11/21/18 10:37 Artificial Tears (Artificial Tears Ophth Soln) 1 drop EACH EYE BID [facility] Stop: 11/21/18 07:31 Last Admin: 09/24/18 11:38 Dose: 1 drop Divalproex Sodium (Depakote Dr) 500 mg PO BID [facility]; Protocol Stop: 11/21/18 08:59 Last Admin: 09/24/18 09:02 Dose: 500 mg Fluocinonide (Lidex 0.05%) 1 appl TP BID [facility] Stop: 11/21/18 08:59 Last Admin: 09/24/18 11:40 Dose: 1 appl Folic Acid (Folate) 1 mg PO DAILY [facility] Stop: 11/21/18 08:59 Last Admin: 09/24/18 09:02 Dose: 1 mg Cefepime HCl 1 gm/ Sodium (Chloride) 50 mls @ 100 mls/hr IV Q12HR [facility] Stop: 11/20/18 20:59 Last Admin: 09/24/18 10:22 Dose: 100 mls/hr Dextrose/Sodium Chloride (D5-0.45ns) 1,000 mls @ 75 mls/hr IV .[id number] [facility] Stop: 11/20/18 20:29 Last Admin: 09/23/18 23:03 Dose: 75 mls/hr Vancomycin HCl 500 mg/ Sodium (Chloride) 100 mls @ 100 mls/hr IV Q12HR [facility] Stop: 11/21/18 08:59 Last Admin: 09/24/18 08:51 Dose: 100 mls/hr Ketoconazole (Nizoral 2% Cream) 1 appl TP BID [facility] Stop: 11/22/18 16:59 Last Admin: 09/24/18 11:40 Dose: 1 appl Lactic Acid (Lac-Hydrin Cream) 1 appl TP BID [facility] Stop: 11/23/18 08:59 Last Admin: 09/24/18 09:27 Dose: Not Given Levothyroxine Sodium (Synthroid) 0.05 mg PO DAILY [facility] Stop: 11/21/18 08:59 Last Admin: 09/24/18 08:56 Dose: 0.05 mg Mirtazapine (Remeron) 7.5 mg PO HS [facility]; Protocol Stop: 11/20/18 20:59 Last Admin: 09/23/18 20:23 Dose: 7.5 mg Miscellaneous (Vancomycin Iv Per Pharmacy) 1 [facility] PRN PRN PRN Reason: PROTOCOL Stop: 11/20/18 19:46 Miscellaneous (Cyclosporine [Restasis]) 1 each OP BID [facility] Stop: 11/21/18 08:59 Quetiapine Fumarate (Seroquel) 50 mg PO DAILY [facility]; Protocol Stop: 11/21/18 08:59 Last Admin: 09/24/18 10:20 Dose: Not Given Quetiapine Fumarate (Seroquel) [address] [facility]; Protocol Stop: 11/20/18 20:59 Last Admin: 09/23/18 20:23 Dose: 50 mg Topiramate (Topamax) 200 mg PO HS [facility] Stop: 11/20/18 21:44 Last Admin: 09/23/18 20:23 Dose: 200 mg Vitamin D (Vitamin D3) 2,000 iu PO DAILY [facility] Stop: 11/21/18 08:59 Last Admin: 09/24/18 10:19 Dose: Not Given General: no acute distress, well developed, well nourished HEENT: atraumatic, normocephalic, PERRLA Neck: supple, no thyromegaly Cardiovascular: S1S2, regular Lungs: clear to auscultation bilaterally, clear to percussion Abdomen: soft, no tender, no distended Extremities: no cyanosis, no clubbing, no edema Neurological: awake, alert Skin: intact, other (right leg wound closed.) - Procedures Procedures: Procedures Procedure Code Date EXCISION OF R LOW LEG SUBCU/FASCIA, OPEN APPROACH [id number] 09/21/18 GROUP PSYCHOTHERAPY 93760 09/28/15 GROUP PSYCHOTHERAPY [id number] 09/28/15 Infectious Disease Assmt/Plan - Problem List Patient Problems: All Active Problems LACERATION TO RIGHT LOWER LEG (Acute) - Assessment Assessment: 1. Leukocytosis resolved. 2. Right leg laceration wound. 3. Patient might have eczema of the right foot. 4. GERD, peptic ulcer disease. 5. Anemia. 6. Dementia. - Plan Plan: [facility] wound care. dc plan.
--- NOTE | 2018-09-24 14:48 | Diagnostic Imaging Report ---
Right lower extremity Doppler arterial ultrasound exam HISTORY: Peripheral vascular/arterial disease, pain Sonographic sector images were obtained through the arterial system of the right leg. Associated Doppler data was obtained. The exam demonstrates triphasic waveforms within the common femoral, superficial femoral, and popliteal arteries. Abnormal monophasic waveforms seen within the right anterior tibial, posterior tibial, anterior status pedis arteries. Slight increase in velocity noted within the posterior tibial artery region. The ankle-brachial index is normal (1.0). Sonographic images demonstrate mild to moderate diffuse athetotic changes. No significant focal narrowing or stenosis is seen. IMPRESSION: 1. Findings as described above that appear associated with mild to moderate diffuse atherosclerotic changes. No significant focal narrowing or stenosis is identified.
--- NOTE | 2018-09-24 17:23 | Discharge Summary ---
DATE OF DISCHARGE: 09/24/2018 PRINCIPAL DIAGNOSES: 1. Lacerated wound on the right leg required excisional debridement of the right leg with primary closure of 5 x 5 cm size of the wound, 10 cm jagged and opened to the fascia. 2. Seizure disorder. 3. Psychotic disorder. 4. Acute kidney injury. 5. Hypothyroidism. 6. Depakote toxicity. 7. Degenerative joint disease. 8. Debility. 9. History of congestive heart failure. BRIEF STATEMENT FOR THE REASON FOR ADMISSION: The patient was sent to Emergency Room after the patient had injury to the right leg wound. For that, the patient was evaluated and noted to have a surgical closure and post-procedure, the patient was admitted to the hospital for further treatment. Please refer to my H and P for further information. HOSPITAL COURSE: The patient was noted to have acute kidney injury, IV fluid was given. The patient had Depakote toxicity, for that Depakote level was decreased as well. The patient did have a post-procedure IV antibiotic continued. The patient was followed by Infectious Disease and myself as well as surgeon as well. Lower extremity arterial Doppler study were done, which did not reveal any significant arterial injury. The patient did have appropriate home medicine reconciliation as well. The patient was cleared by the surgeon. Considering the patient did not have any arterial injury and the patient did not have any hemodynamic instability or increasing leg swelling. The patient was evaluated by physical therapist as well. The patient has been discharged to senior care with local wound care along with p.o. antibiotic, Augmentin to be continued for 10 days as well. The patient will be followed by myself in a senior care along with the psychiatrist. Care plan has been discussed with RN and embedded case manager. JOB# [id number]
--- NOTE | 2018-09-25 07:48 | Progress Notes ---
DATE: 09/24/2018 SUBJECTIVE: The patient seen and examined. The patient is lying in the bed. The patient is refusing medication at times. The patient denies any chest pain, shortness of breath, palpitation, dizziness, nausea, vomiting, headache, seizure. PHYSICAL EXAMINATION: VITAL SIGNS: Temperature 97.9, pulse 60, respiratory rate 18, blood pressure is 100/53. HEENT: No facial asymmetry. NECK: Supple, no JVD. HEART: Regular. CHEST: Lung equal in expansion, no expiratory wheezing. ABDOMEN: Soft. No guarding or rigidity. Bowel sounds present and normal. EXTREMITIES: Intact dressing in the right leg noted. CLINICAL IMPRESSION: 1. Status post debridement of a right leg wound. 2. Acute kidney injury, resolved. 3. Hypothyroidism. 4. Depakote toxicity, better. 5. Seizure disorder. 6. Dementia. 7. Hypertension. 8. Congestive heart failure. PLAN: In the view of patient remained hemodynamically stable. I talked to the surgeon who agreed to discharge this patient to home with p.o. antibiotic and wound care as well as remove the sutures ____. The patient has been discharged today. At the time of discharge, all of his medications were reconciled. JOB# [id number]
--- NOTE | 2018-09-28 11:11 | Pathology Report ---
[id number] Collection date: 09/21/2018 Surgeon: Dr. Cain Jaime Specimen Description: Necrotic tissue, right leg Gross Description: Received in formalin are multiple irregular cooney-pink soft tissue fragments aggregating to an area 1.5 x 1.0 x 0.6 cm. Totally submitted in one cassette. Microscopic Description: The histologic sections show fragments of benign skin and fibroadipose tissue with areas of hemorrhagic fragmentation and blood clot. Focal degenerative changes and chronic inflammation are also appreciated showing hemorrhagic necrosis. Diagnosis: Skin and fibrofatty showing hemorrhagic changes and necrosis, consistent with necrotic tissue from right leg wound. JOB# [id number]
== END 2018-09-24 16:15 | DRG 463 ==
LOC: ER 14:52 → MSI 17:08
PROVIDERS: ADMIT Internal Medicine; ATTEND Internal Medicine
PROC: 0JBN0ZZ Excision of Right Lower Leg Subcutaneous Tissue and Fascia, Open Approach (ICD-10-PCS; principal; 2018-09-21)
DX: S86.321A Laceration of muscle(s) and tendon(s) of peroneal muscle group at lower leg level, right leg, initial encounter (principal); N17.0 Acute kidney failure with tubular necrosis; I50.20 Unspecified systolic (congestive) heart failure; E44.1 Mild protein-calorie malnutrition; E03.9 Hypothyroidism, unspecified; T42.6X5A Adverse effect of other antiepileptic and sedative-hypnotic drugs, initial encounter; G40.909 Epilepsy, unspecified, not intractable, without status epilepticus; F03.90 Unspecified dementia, unspecified severity, without behavioral disturbance, psychotic disturbance, mood disturbance, and anxiety; K21.9 Gastro-esophageal reflux disease without esophagitis; K27.9 Peptic ulcer, site unspecified, unspecified as acute or chronic, without hemorrhage or perforation; F32.9 Major depressive disorder, single episode, unspecified; X58.XXXA Exposure to other specified factors, initial encounter; L30.9 Dermatitis, unspecified; Y93.89 Activity, other specified; Y92.89 Other specified places as the place of occurrence of the external cause; Y99.8 Other external cause status; E86.0 Dehydration; D64.9 Anemia, unspecified; F29 Unspecified psychosis not due to a substance or known physiological condition; I11.0 Hypertensive heart disease with heart failure; M19.90 Unspecified osteoarthritis, unspecified site; Z79.899 Other long term (current) drug therapy
CPT/HCPCS: 36415-UA; 71045-TC; 73590-TC-RT; 80048-TC; 80053-TC; 80164-TC; 80202-TC; 83735-TC; 84100-TC; 84443-TC; 85007-TC; 85025-TC; 88304-TC; 93005; 93925-TC; 93926-RT-TC; 93970-TC-50; 96372; A4217; J0690; J0692; J2405; J2704; J2710; J3010; J3370; V2790; X5716; X6258; Z7512; Z7610

== ENCOUNTER 2019-01-09 17:20 | Inpatient (IN) | payer MEDICARE, MEDICAID ==
--- NOTE | 2019-01-09 17:54 | ED Physician Chart ---
ED Chief Complaint/HPI - Patient Information Date Seen:: 01/09/19 Time Seen:: 17:35 Chief Complaint:: Agitation History of Present Illness:: onset x 3 days of agitation and aggressive behavior; no report of trauma, LOC, H /As, S/T, neck pain, C/P, cough, SIs, SOB, Abd. Pain, A/N/V/D/C, fever, chills, or urinary s/s Allergies:: Allergies Allergy/AdvReac Type Severity Reaction Status Date / Time No Known Allergies Allergy Verified 03/11/17 17:05 Vitals:: Vital Signs - 8 hr 01/09/19 17:37 Temp 98.1 F HR 76 RR 16 BP 123/92 O2 Sat % 96 Historian:: Patient, EMS Review:: Nurse's Note Reviewed, Old Chart Reviewed, EMS run form Reviewed ED Review of Systems - Review of Systems General/Constitutional: No fever, No chills, No weight loss, No weakness, No diaphoresis, No edema, No loss of appetite Skin: No skin lesions, No rash, No bruising Head: No headache, No light-headedness Eyes: No loss of vision, No pain, No diplopia ENT: No earache, No nasal drainage, No sore throat, No tinnitus Neck: No neck pain, No swelling, No thyromegaly, No stiffness, No mass noted Cardio Vascular: No chest pain, No palpitations, No PND, No orthopnea, No edema Pulmonary: No SOB, No cough, No sputum, No wheezing GI: No nausea, No vomiting, No diarrhea, No pain, No melena, No hematochezia, No constipation, No hematemesis G/U: No dysuria, No frequency, No hematuria, No nacturia Musculoskeletal: No bone or joint pain, No back pain, No muscle pain Endocrine: No polyuria, No polydipsia Psychiatric: Prior psych history, Depression, Anxiety, No suicidal ideation, No homicidal ideation, No auditory hallucination, No visual hallucination Hematopoietic: No bruising, No lymphadenopathy Allergic/Immuno: No urticaria, No angioedema Neurological: No syncope, No focal symptoms, No weakness, No paresthesia, No headache, No seizure, No dizziness, No confusion, No vertigo ED Past Medical History - Past Medical History Past Medical History: HTN, CAD, CHF, Dyslipidemia, Seizures, Thyroid disorder Family History: HTN Social History: Non Smoker, No Alcohol, No Drug Use, Single, Care Facility Surgical History: None Psychiatricy History: Depression, Bipolar Medication: Reviewed Family Medical History - Family Member Mother History Unknown: Yes Ethnicity: Living Status: ED Physical Exam - Physical Examination General/Constitutional: Awake, Well-developed, well-nourished, Alert, No distress, GCS 15, Non-toxic appearing, Ambulatory Head: Atraumatic Eyes: Lids, conjuctiva normal, PERRL, EOMI Skin: Nl inspection, No rash, No skin lesions, No ecchymosis, Well hydrated, No lymphadenopathy ENMT: External ears, nose nl, TM canals nl, Nasal exam nl, Lips, teeth, gums nl , Oropharynx nl, Tonsils nl Neck: Nontender, Full ROM w/o pain, No JVD, No nuchal rigidity, No bruit, No mass, No stridor Respiratory: Nl effort/Exclusion, Clear to Auscultation, No Wheeze/Rhonchi/Rales Cardio Vascular: RRR, No murmur, gallop, rubs, NL S1 S2, Carotid/Femoral/Distal pulses equal bilaterally GI: No tenderness/rebounding/guarding, No organomegaly, No hernia, Normal BS's, Nondistended, No mass/bruits, No McBurney tenderness Other GI comments:: no pulsatile masses : No CVA tenderness Extremities: No tenderness or effusion, Full ROM, normal strength in all extremities, No edema, Normal digits & nails Neuro/Psych: Alert/oriented, DTR's symmetric, Normal sensory exam, Normal motor strength, Judgement/insight normal, Mood normal, Normal gait, No focal deficits Other Neuro/Psych comments:: + Psychomotor Agitation; no SIs; Mood/Affect: Labile Misc: Normal back, No paraspinal tenderness ED Labs/Radiology/EKG Results - Lab Results Comments:: Reviewed - EKG Interpretations Comments:: pt refused EKG ED Septic Shock - . Is Septic Shock (SBP<90, OR Lactate>4 mmol\L) present?: No - <6hrs of presentation: Vital Signs: Vital Signs - 8 hr 01/09/19 17:37 Temp 98.1 F HR 76 RR 16 BP 123/92 O2 Sat % 96 ED Reassessment (Disposition) - Reassessment Reassessment Condition:: Improved - Diagnosis Diagnosis:: Agitation; Medical Clearance; Psychosis; Bipolar Disorder - Aftercare/Follow up Instructions Aftercare/Follow-Up Instructions:: Counseled pt regarding lab results/diagnosis & need follow up, Counseled pt & family regarding lab results/diagnosis & need follow up - Patient Disposition Discharge/Transfer:: Acute Care w/in this hosp Admitted to:: [facility] Condition at Disposition:: Stable, Improved
[2019-01-09 18:09] LABS: URINE SOURCE CLEAN C
[2019-01-09 18:09] LABS: % EOSINOPHILS 0.4 % (0.0-5.0); % LYMPHOCYTES 17.9 % (20.0-50.0); % MONOCYTES 3.2 % (2.0-10.0); % NEUTROPHILS 78.5 % (40.0-80.0); EOSINOPHILE ABSOLUTE 0.1 Th/cmm (0.1-0.4); HEMATOCRIT 49.1 % (41.0-60); HEMOGLOBIN 16.3 gm/dL (12-16); LYMPHOCYTE ABSOLUTE 2.2 Th/cmm (1.5-3.0); MEAN CELL VOLUME 92.7 fl (80-99); MEAN CORPUSCULAR HEMOGLOBIN 30.8 pg (27.0-31.0); MEAN CORPUSCULAR HGB CONC 33.2 pg (28.0-36.0); MEAN PLATELET VOLUME 8.2 fl; MONOCYTE ABSOLUTE 0.4 Th/cmm (0.3-1.0); NEUTROPHILE ABSOLUTE 9.8 Th/cmm (1.8-8.0); PLATELET COUNT 187 Th/cmm (150-400); RED CELL DISTRIBUTION WIDTH 14.7 % (11.5-20.0); WHITE BLOOD COUNT 12.5 Th/cmm (4.8-10.8)
[2019-01-09 18:14] LABS: URINE BILIRUBIN NEGATIVE (NEGATIVE); URINE BLOOD NEGATIVE (NEGATIVE); URINE GLUCOSE (UA) NEGATIVE (NEGATIVE); URINE KETONE NEGATIVE (NEGATIVE); URINE LEUKOCYTE ESTERASE NEGATIVE (NEGATIVE); URINE NITRATE NEGATIVE (NEGATIVE); URINE PH 5.5 (4.6 - 8.0); URINE PROTEIN NEGATIVE (NEGATIVE); URINE UROBILINOGEN 0.2 E.U./dL (0.2 - 1.0)
[2019-01-09 18:19] LABS: URINE CLARITY CLEAR (CLEAR); URINE COLOR YELLOW; URINE MICROSCOPIC INDICATED? YES; URINE RBC NONE SEEN /hpf (0-5); URINE WBC 0-2 /hpf (0-5)
[2019-01-09 18:20] LABS: URINE BACTERIA FEW /hpf (NONE SEEN); URINE EPITHELIAL CELLS NONE SEEN /lpf (FEW)
[2019-01-09 18:22] LABS: AMPHETAMINE URINE NEGATIVE (NEGATIVE); BARBITURATES URINE NEGATIVE (NEGATIVE); BENZODIAZEPINES QUAL URINE NEGATIVE (NEGATIVE); CANNABINOID THC NEGATIVE (NEGATIVE); COCAINE METABOLITE QUAL URINE NEGATIVE (NEGATIVE); METHADONE URINE NEGATIVE (NEGATIVE); METHAMPHETAMINES QUAL URINE NEGATIVE (NEGATIVE); OPIATES (MORPHINE) QUAL. URINE NEGATIVE (NEGATIVE); PHENCYCLIDINE (PCP) URINE NEGATIVE (NEGATIVE); TRICYCLICS (TCA) QUAL. URINE NEGATIVE (NEGATIVE)
[2019-01-09 18:28] LABS: ALB/GLOB RATIO 1.1 (1.0-1.8); ALBUMIN 3.9 gm/dL (4.2-5.5); ALKALINE PHOSPHATASE 71 U/L (34-104); ANION GAP 14.6 (7.0-16.0); BILIRUBIN,TOTAL 0.4 mg/dL (0.3-1.0); BUN - UREA NITROGEN 35 mg/dL (7-25); CALCIUM SERUM 9.6 mg/dL (8.6-10.3); CARBON DIOXIDE 24.7 mEq/L (21.0-31.0); CHLORIDE 104 mEq/L (98-107); CHOLESTEROL 192 mg/dL (<200); CREATININE - SERUM 1.3 mg/dL (0.7-1.3); GLUCOSE 121 mg/dL (70-105); HDL -HIGH DENSITY LIPOPROTEIN 66 mg/dL (23-92); POTASSIUM SERUM 4.3 mEq/L (3.5-5.1); SALICYLATES (ASPIRIN) < 25.0 mg/L (30.0-100.0); SGOT 24 U/L (13-39); SGPT/ALT 21 U/L (7-52); SODIUM SERUM 139 mEq/L (136-145); TOTAL PROTEIN,SERUM 7.5 gm/dL (6.0-8.3); TRIGLYCERIDES 119 mg/dL (<150)
[2019-01-09 18:29] LABS: ACETAMINOPHEN < 10.0 ug/mL (10.0-30.0)
[2019-01-09 22:31] VITALS: BP 121/64
[2019-01-09] MEDS ORDERED: Maalox 30 mL Cup PO PRN (22:36)
[2019-01-09] MEDS ORDERED: Magnesium Hydroxide (MOM) 30 mL UDC PO PRN (22:36)
[2019-01-10] MEDS: Multivitamin Tab PO SCH ×2 (08:04→08:11)
--- NOTE | 2019-01-10 09:45 | History & Physical ---
ADMIT DATE: 01/09/2019 PATIENT IDENTIFICATION: A 73-year-old male. CHIEF COMPLAINT: Increasing agitation and refusing care. HISTORY OF PRESENT ILLNESS: A 73-year-old Afghan male who I follow him at [facility], brought into the Emergency Room after the patient was noted by nursing staff that the patient was extremely agitated and refusing care. The patient has significant psychiatric and medical history. I have been advised to see the patient for medical management. PAST MEDICAL HISTORY: Remarkable for 1. Seizure disorder. 2. CHF. 3. Hypertension. 4. DJD. 5. Psychotic disorder. 6. Dementia. 7. Fall risk. MEDICATIONS: Currently, he is taking at retirement, which include Depakote, [place], Tylenol, vitamin D3, folic acid, K-MARIN, Topamax, levothyroxine and Lasix. ALLERGIES: The patient is not allergic to any medications. SOCIAL HISTORY: The patient resides in a retirement. No still smoking cigarette, alcohol, or drug use. FAMILY MEDICAL HISTORY: Unavailable. REVIEW OF SYSTEMS: Unable to obtain meaningful history from the patient. PHYSICAL EXAMINATION: GENERAL: The patient is alert, awake, agitated, lying in the bed without any acute distress. VITAL SIGNS: Temperature 98.6, pulse is 64, respiratory rate 18, blood pressure 144/78. HEENT: Normocephalic, atraumatic. Extraocular muscles are intact. Tongue more pink and coated. Poor dentition noted. No exudate. NECK: Supple, no JVD, no hepatojugular reflex. No lymphadenopathy, thyromegaly, or carotid bruit. HEART: Both heart sounds are regular. No S3, no S4, no murmur. CHEST AND LUNGS: Equal in expansion, no expiratory wheezing. ABDOMEN: Soft. No guarding, no rigidity. Liver and spleen were palpable. No palpable mass. EXTREMITIES: No edema, no cyanosis or clubbing. Peripheral pulses +2. No calf tenderness noted. NEUROLOGIC: Alert, awake, follows command, moving upper and lower extremities without any difficulties. CLINICAL IMPRESSION: 1. Psychotic disorder exacerbation. 2. Seizure disorder. 3. Hypertension. 4. Congestive heart failure. 5. Degenerative joint disease. 6. Dementia. 7. Fall risk. 8. Debility. PLAN: 1. Psychotic evaluation, I am going to defer to psychiatrist. 2. Seizure medication. 3. Seizure precaution. 4. Antihypertensive medicine. 5. Low sodium diet. 6. Monitor for fall risk. 7. General nursing care. 8. Nutritional support. 9. Continue other medicine as prescribed. 10. Care plan reviewed and discussed with staff. JOB# [id number]
--- NOTE | 2019-01-10 21:16 | Psychiatric Evaluation ---
DATE OF SERVICE: CHIEF COMPLAINT: Agitation and irritability. HISTORY OF PRESENT ILLNESS: The patient is a 73-year-old male who has been agitated in [facility] where he lives. The patient also has been refusing care and has been upset with the staff and not able to follow their directions. He also is still suspicious and paranoid. The patient also is confused and is still agitated upon arrival to the hospital. PAST PSYCHIATRIC HISTORY: The patient denies. PAST MEDICAL HISTORY: The patient has a history of hypertension. SOCIAL HISTORY: The patient lives in [facility]. No known alcohol or drug use. MENTAL STATUS EXAMINATION: The patient appears his stated age. Anxious. Restless. Irritable mood. Disorganized thoughts. Suspicious and paranoid and is also uncooperative during interview. He denied suicidal or homicidal ideations. The patient is alert and oriented to situation and place and person. Intact immediate, recent, and remote memories. Poor insight and poor judgment. ASSESSMENT: PRIMARY DIAGNOSIS: Unspecified psychosis, rule out bipolar disorder. TREATMENT PLAN: Continue monitoring his behavior and condition closely. Also, we will start individual as well as milieu psychotherapy. Also, we will start Seroquel in a dose of 25 mg twice a day and we will continue to follow up. [facility]# [id number]
[2019-01-11] MEDS: Multivitamin Tab PO SCH ×2 (08:19→08:23)
[2019-01-12] MEDS: Multivitamin Tab PO SCH (08:50)
--- NOTE | 2019-01-12 20:17 | Progress Notes ---
DATE: SUBJECTIVE: The patient was seen, chart reviewed, and findings were discussed with staff. The patient continues to be irritable and agitated, refused to participate in interview today, continues to be very suspicious, paranoid, requiring numerous redirections, became quite loud during interview. PLAN: The patient continues to be irritable with a history of onset that he will require continued inpatient care center treatment. We will monitor patient on a daily basis for response to medications and titrate medications as needed. JOB# [id number]
[2019-01-13] MEDS: Multivitamin Tab PO SCH (08:07)
[2019-01-13] MEDS: Artificial Tear Ophth Oint 3.5 Gm Tube EACH EYE SCH ×2 (10:00→16:12)
--- NOTE | 2019-01-14 04:28 | Progress Notes ---
DATE: SUBJECTIVE: The patient was seen, chart reviewed, and findings were discussed with staff. The patient seen at bedside, was extremely irritable, verbose and provocative in his language. He continues to be very suspicious and paranoid of staff and peers. He has been compliant with medications. PLAN: The patient continues to be very irritable and unpredictable, so that he will require inpatient care center treatment. We will monitor the patient on a daily basis for response to medications and titrate medications as needed. JOB# [id number]
[2019-01-14] MEDS: Multivitamin Tab PO SCH (08:13)
[2019-01-14] MEDS: Artificial Tear Ophth Oint 3.5 Gm Tube EACH EYE SCH ×2 (08:13→16:32)
--- NOTE | 2019-01-14 23:22 | Progress Notes ---
DATE: 01/14/2019 PATIENT IDENTIFICATION: A 73-year-old male. SUBJECTIVE: The patient was seen and examined. The patient is ambulatory. The patient still has a period of outburst. PHYSICAL EXAMINATION: VITAL SIGNS: Temperature 98.6, pulse 60, respiratory rate 18, blood pressure 103/57. HEENT: No facial asymmetry. Poor dentition. NECK: Supple, no JVD. HEART: Regular. CHEST AND LUNGS: Equal in expansion, no expiratory wheezing. ABDOMEN: Soft. EXTREMITIES: No edema. CLINICAL IMPRESSION: 1. Hypertension. 2. Congestive heart failure. 3. Seizure disorder. 4. Psychotic disorder. 5. Dementia. 6. Degenerative joint disease. 7. High risk for fall. PLAN: 1. Seizure medication. 2. Seizure precaution. 3. Keep the patient euvolemic. 4. Psych medication. 5. Psych followup. 6. Nutritional support. 7. General nursing care. 8. We will continue to follow this patient during the stay in the hospital. JOB# [id number]
--- NOTE | 2019-01-15 00:56 | Progress Notes ---
DATE: 01/14/2019 Case was discussed with staff of the patient, reviewed records. Covering for Dr. Philippe. A 73-year-old male who was admitted on 01/09/2019. The patient is refusing care, upset with the staff. He came from [facility]. Unable to follow staff direction, suspicious, paranoid, confused, agitated. He is very disorganized, tearful, unable to participate in meaningful conversation or make safe plan for self-care, unpredictable, impulsive, needing redirection. He is on Seroquel 25 mg twice a day with no side effects, no sedation, no nausea, no extrapyramidal symptoms. We will continue to work with the patient in group therapy, milieu therapy, and adjust the medications as needed. JOB# [id number]
[2019-01-15] MEDS: Multivitamin Tab PO SCH (08:52)
[2019-01-15] MEDS: Artificial Tear Ophth Oint 3.5 Gm Tube EACH EYE SCH ×2 (08:52→16:55)
--- NOTE | 2019-01-15 20:20 | Progress Notes ---
DATE: 01/15/2019 Case was discussed with staff of the patient, reviewed records. The patient continues to be unpredictable, impulsive, needing redirection. Continues to have poor insight. Continues ____ unable to make safe plan for self-care. He is compliant with the medication with no side effects, no sedation, no nausea, no extrapyramidal symptoms. We will continue the patient in group therapy, milieu therapy and adjust medications as needed. JOB# [id number]
[2019-01-16] MEDS: Artificial Tear Ophth Oint 3.5 Gm Tube EACH EYE SCH ×2 (09:37→18:10)
[2019-01-16] MEDS: Multivitamin Tab PO SCH (09:42)
--- NOTE | 2019-01-16 20:25 | Progress Notes ---
DATE: 01/16/2019 IDENTIFICATION: A 73-year-old male. SUBJECTIVE: The patient is seen and examined. The patient is lying in the bed. No new event. OBJECTIVE: VITAL SIGNS: Temperature 98, pulse is 56, respiratory rate 20, blood pressure 112/64. HEENT: No facial asymmetry. NECK: Supple, no JVD. HEART: Regular. LUNGS: Clear. ABDOMEN: Soft, no guarding, no rigidity. Bowel sounds are present. No palpable mass. EXTREMITIES: No edema. CLINICAL IMPRESSION: 1. Hypertension. 2. Congestive heart failure. 3. Seizure. 4. Psychotic disorder exacerbation. 5. Dementia. 6. Degenerative joint disease. 7. High risk for fall. PLAN: 1. Low-sodium diet. 2. We will keep the patient euvolemic. 3. Seizure medication. 4. Seizure precaution. 5. Psych followup. 6. Psych medication. 7. General nursing care. 8. Nutritional support. 9. Fall precautions. 10. Care plan reviewed and discussed with staff. JOB# [id number]
[2019-01-17] MEDS: Multivitamin Tab PO SCH (09:02)
[2019-01-17] MEDS: Artificial Tear Ophth Oint 3.5 Gm Tube EACH EYE SCH ×2 (09:02→19:00)
--- NOTE | 2019-01-17 23:40 | Internal Medicine Prog Note ---
Internal Medicine Subjective - Subjective Patient seen and examined:: with staff, chart reviewed, other (cross coverage for dr clemens) Patient is:: awake, verbal, interactive Per staff patient has:: no adverse event, no episodes of fall, tolerating meds Internal Medicine Objective - Results Result Diagrams: 01/09/19 18:00 01/09/19 18:00 Recent Labs: Laboratory Last Values WBC 12.5 Th/cmm (4.8-10.8) H 01/09/19 18:00 RBC 5.30 Mil/cmm (3.80-5.80) 01/09/19 18:00 Hgb 16.3 gm/dL (12-16) 01/09/19 18:00 Hct 49.1 % (41.0-60) 01/09/19 18:00 MCV 92.7 fl (80-99) 01/09/19 18:00 MCH 30.8 pg (27.0-31.0) 01/09/19 18:00 MCHC Differential 33.2 pg (28.0-36.0) 01/09/19 18:00 RDW 14.7 % (11.5-20.0) 01/09/19 18:00 Plt Count 187 Th/cmm (150-400) 01/09/19 18:00 MPV 8.2 fl 01/09/19 18:00 Neutrophils % 78.5 % (40.0-80.0) 01/09/19 18:00 Lymphocytes % 17.9 % (20.0-50.0) L 01/09/19 18:00 Monocytes % 3.2 % (2.0-10.0) 01/09/19 18:00 Eosinophils % 0.4 % (0.0-5.0) 01/09/19 18:00 Basophils % 0.0 % (0.0-2.0) 01/09/19 18:00 Sodium 139 mEq/L (136-145) 01/09/19 18:00 Potassium 4.3 mEq/L (3.5-5.1) 01/09/19 18:00 Chloride 104 mEq/L (98-107) 01/09/19 18:00 Carbon Dioxide 24.7 mEq/L (21.0-31.0) 01/09/19 18:00 Anion Gap 14.6 (7.0-16.0) 01/09/19 18:00 BUN 35 mg/dL (7-25) H 01/09/19 18:00 Creatinine 1.3 mg/dL (0.7-1.3) 01/09/19 18:00 Est GFR ( Amer) TNP 01/09/19 18:00 Est GFR (Non-Af Amer) TNP 01/09/19 18:00 BUN/Creatinine Ratio 26.9 01/09/19 18:00 Glucose 121 mg/dL (70-105) H 01/09/19 18:00 Calcium 9.6 mg/dL (8.6-10.3) 01/09/19 18:00 Total Bilirubin 0.4 mg/dL (0.3-1.0) 01/09/19 18:00 AST 24 U/L (13-39) 01/09/19 18:00 ALT 21 U/L (7-52) 01/09/19 18:00 Alkaline Phosphatase 71 U/L (34-104) 01/09/19 18:00 Troponin I < 0.01 ng/mL (0.01-0.05) L 01/09/19 18:00 Total Protein 7.5 gm/dL (6.0-8.3) 01/09/19 18:00 Albumin 3.9 gm/dL (4.2-5.5) L 01/09/19 18:00 Globulin 3.6 gm/dL 01/09/19 18:00 Albumin/Globulin Ratio 1.1 (1.0-1.8) 01/09/19 18:00 Triglycerides 119 mg/dL (<150) 01/09/19 18:00 Cholesterol 192 mg/dL (<200) 01/09/19 18:00 LDL Cholesterol Direct 125 mg/dL (75-193) 01/09/19 18:00 HDL Cholesterol 66 mg/dL (23-92) 01/09/19 18:00 TSH 5.02 uIU/ml (0.34-5.60) 01/09/19 18:00 Urine Source CLEAN C 01/09/19 17:30 Urine Color YELLOW 01/09/19 17:30 Urine Clarity CLEAR (CLEAR) 01/09/19 17:30 Urine pH 5.5 (4.6 - 8.0) 01/09/19 17:30 Ur Specific [place] 1.020 (1.005-1.030) 01/09/19 17:30 Urine Protein NEGATIVE mg/dL (NEGATIVE) 01/09/19 17:30 Urine Glucose (UA) NEGATIVE mg/dL (NEGATIVE) 01/09/19 17:30 Urine Ketones NEGATIVE mg/dL (NEGATIVE) 01/09/19 17:30 Urine Blood NEGATIVE (NEGATIVE) 01/09/19 17:30 Urine Nitrate NEGATIVE (NEGATIVE) 01/09/19 17:30 Urine Bilirubin NEGATIVE (NEGATIVE) 01/09/19 17:30 Urine Urobilinogen 0.2 E.U./dL (0.2 - 1.0) 01/09/19 17:30 Ur Leukocyte Esterase NEGATIVE (NEGATIVE) 01/09/19 17:30 Urine RBC NONE SEEN /hpf (0-5) 01/09/19 17:30 Urine WBC 0-2 /hpf (0-5) 01/09/19 17:30 Ur Epithelial Cells NONE SEEN /lpf (FEW) 01/09/19 17:30 Urine Bacteria FEW /hpf (NONE SEEN) 01/09/19 17:30 Salicylates < 25.0 mg/L (30.0-100.0) L 01/09/19 18:00 Urine Opiates Screen NEGATIVE (NEGATIVE) 01/09/19 17:30 Urine Methadone Screen NEGATIVE (NEGATIVE) 01/09/19 17:30 Acetaminophen < 10.0 ug/mL (10.0-30.0) L 01/09/19 18:00 Ur Barbiturates Screen NEGATIVE (NEGATIVE) 01/09/19 17:30 Ur Tricyclics Screen NEGATIVE (NEGATIVE) 01/09/19 17:30 Ur Phencyclidine Scrn NEGATIVE (NEGATIVE) 01/09/19 17:30 Amphetamines Screen NEGATIVE (NEGATIVE) 01/09/19 17:30 U Methamphetamines Scrn NEGATIVE (NEGATIVE) 01/09/19 17:30 U Benzodiazepines Scrn NEGATIVE (NEGATIVE) 01/09/19 17:30 U Cocaine Metab Screen NEGATIVE (NEGATIVE) 01/09/19 17:30 U Cannabinoids Screen NEGATIVE (NEGATIVE) 01/09/19 17:30 Ethyl Alcohol < 10 mg/dL (0-10) 01/09/19 18:00 RPR NONREACTIVE (NONREACTIVE) 01/09/19 18:00 - Physical Exam Vitals and I&O: Vital Signs Temp 97 F 01/17/19 20:00 Pulse 64 01/17/19 20:00 Resp 20 01/17/19 20:00 BP 118/77 01/17/19 20:00 Pulse Ox 96 01/17/19 20:00 Intake & Output 01/17/19 01/17/19 01/18/19 06:59 18:59 06:59 Intake Total 420 800 Balance 420 800 Intake: Oral 420 800 Other: # Voids 2 3 # Bowel Movements 1 Active Medications: Current Medications Acetaminophen (Tylenol) 650 mg PO Q4HR PRN PRN Reason: Mild Pain 1-3/ Temp above 100 Stop: 03/10/19 22:35 Al Hydrox/Mg Hydrox/Simethicone (Maalox) 30 ml PO Q4HR PRN PRN Reason: GI DISTRESS Stop: 03/10/19 22:35 Artificial Tears (Lubrifresh Ophth Oint) 1 appl EACH EYE BID JERALD Stop: 03/14/19 08:59 Last Admin: 01/17/19 19:00 Dose: 1 appl Fluocinonide (Lidex 0.05%) 1 appl TP BID JERALD Stop: 03/18/19 16:59 Last Admin: 01/17/19 18:24 Dose: Not Given Lorazepam (Ativan) 0.5 mg PO Q4HR PRN; Protocol PRN Reason: Anxiety Stop: 02/08/19 22:35 Magnesium Hydroxide (Milk Of Magnesia) 30 ml PO HS PRN PRN Reason: Constipation Multivitamins/Vitamin C (Theragran) 1 tab PO DAILY JERALD Stop: 03/11/19 08:59 Last Admin: 01/17/19 09:02 Dose: 1 tab Quetiapine Fumarate (Seroquel) 37.5 mg PO BID JERALD; Protocol Stop: 03/18/19 08:59 Last Admin: 01/17/19 19:00 Dose: Not Given Zolpidem Tartrate (Ambien) 5 mg PO HS PRN PRN Reason: Insomnia Stop: 03/10/19 22:35 HEENT: NC/AT, PERRLA Neck: Supple, No JVD Lungs: CTAB Abdomen: soft, non-tender, non-distended, positive bowel sound Extremities: excoriation Neurological: no change - Procedures Procedures: Procedures Procedure Code Date EXCISION OF R LOW LEG SUBCU/FASCIA, OPEN APPROACH [id number] 09/21/18 GROUP PSYCHOTHERAPY [id number] 09/28/15 GROUP PSYCHOTHERAPY [id number] 09/28/15 Internal Medicine Assmt/Plan - Assessment Assessment: htn chf sz dementia djd gait instability - Plan Plan: monitor fluid status titrate bp meds seizure precaution fall risk cpm Nutritional Asmnt/Malnutr-PDOC - Dietary Evaluation Malnutrition Findings (Please click <Entered> for more info): Nutritional Asmnt/Malnutrition Start: 01/12/19 11: 45 Text: Status: Active Freq: Protocol: Document 01/12/19 11:45 RHAQUE (Rec: 01/12/19 11:52 [email or web address]) Nutritional Asmnt/Malnutrition Patient General Information Nutritional Screening Moderate Risk Diagnosis Acute Psychosis Pertinent Medical Hx/Surgical Hx Seizure disorder, CHF, HTN, DJD, Psychiatric disorder, Dementia, Fall risk Subjective Information RN notes address noncompliance with meds. Spoke to ANAND Bahena , who described a pt who consumes his meals quite diligently. ~100% PO intake across the board, about 50% of snacks. Transferred from [facility] because of noncompliance. Upon visiting the Pt, he pointed to his ear, said he couldn't hear what i was asking him. When i repeated myself, the pt launched into a diatribe about how he was being treated and also about a statue of his grandfather that needed to be completed in [place]. I left when it became clear he had no desire to anwer dietary questions. Current Diet Order/ Nutrition Support Cardiac Patient / S.O Not Indicated Pertinent Medications Vit C, Seroquel, Ambien, MOM, Maalox Pertinent Labs BUN 35 H, Gluc 121 H, Alb 3.9 L Nutritional Hx/Data Height 1.63 m Height (Calculated Centimeters) 162.6 Current Weight (lbs) 80.739 kg Weight (Calculated Kilograms) 80.7 Weight (Calculated Grams) 22667.4 [place] Body Weight 130 lbs % [place] Body Weight 137 Body Mass Index (BMI) 30.5 Weight Status Overweight GI Symptoms GI Symptoms None Last BM 1x 01/11 Cultural/Ethnic/Lutheran Belief None noted. Usual diet at home N/A Skin Integrity/Comment: Mode score 19 Current %PO Good (75-100%) Estimated Nutritional Goals BEE in Kcals: Adj wt of IBW Calories/Kcals/Kg 25 - 30 Kcals Calculated 162 - 1949 Protein: Adj wt of IBW Protein g/k.8 - 1 Protein Calculated 52-65 gm Prtn Fluid: ml 1624 - 1949 Nutritional Problem No current Nutrition Prob Problem N/A Malnutrition Alert Is there a minimum of two criteria No selected? Query Text:Check all the applicable criteria. A minimum of two criteria are recommended for diagnosis of either severe or non-severe malnutrition. Malnutrition Related to Morbid Obesity Malnutrition related to morbid obesity No Intervention/Recommendation Comments Recommend continuing diet as prescribed. Expected Outcomes/Goals Expected Outcomes/Goals - Maintain 100% PO intake - Labs return to WNL - Maintain GI function, Weight , and skin integrity
[2019-01-18] MEDS: Multivitamin Tab PO SCH (09:22)
[2019-01-18] MEDS: Artificial Tear Ophth Oint 3.5 Gm Tube EACH EYE SCH ×2 (09:24→16:16)
--- NOTE | 2019-01-18 11:49 | Internal Medicine Prog Note ---
Internal Medicine Subjective - Subjective Patient seen and examined:: with staff, chart reviewed Patient is:: awake, verbal, interactive Per staff patient has:: no adverse event, no episodes of fall, tolerating meds Internal Medicine Objective - Results Result Diagrams: 01/09/19 18:00 01/09/19 18:00 Recent Labs: Laboratory Last Values WBC 12.5 Th/cmm (4.8-10.8) H 01/09/19 18:00 RBC 5.30 Mil/cmm (3.80-5.80) 01/09/19 18:00 Hgb 16.3 gm/dL (12-16) 01/09/19 18:00 Hct 49.1 % (41.0-60) 01/09/19 18:00 MCV 92.7 fl (80-99) 01/09/19 18:00 MCH 30.8 pg (27.0-31.0) 01/09/19 18:00 MCHC Differential 33.2 pg (28.0-36.0) 01/09/19 18:00 RDW 14.7 % (11.5-20.0) 01/09/19 18:00 Plt Count 187 Th/cmm (150-400) 01/09/19 18:00 MPV 8.2 fl 01/09/19 18:00 Neutrophils % 78.5 % (40.0-80.0) 01/09/19 18:00 Lymphocytes % 17.9 % (20.0-50.0) L 01/09/19 18:00 Monocytes % 3.2 % (2.0-10.0) 01/09/19 18:00 Eosinophils % 0.4 % (0.0-5.0) 01/09/19 18:00 Basophils % 0.0 % (0.0-2.0) 01/09/19 18:00 Sodium 139 mEq/L (136-145) 01/09/19 18:00 Potassium 4.3 mEq/L (3.5-5.1) 01/09/19 18:00 Chloride 104 mEq/L (98-107) 01/09/19 18:00 Carbon Dioxide 24.7 mEq/L (21.0-31.0) 01/09/19 18:00 Anion Gap 14.6 (7.0-16.0) 01/09/19 18:00 BUN 35 mg/dL (7-25) H 01/09/19 18:00 Creatinine 1.3 mg/dL (0.7-1.3) 01/09/19 18:00 Est GFR ( Amer) TNP 01/09/19 18:00 Est GFR (Non-Af Amer) TNP 01/09/19 18:00 BUN/Creatinine Ratio 26.9 01/09/19 18:00 Glucose 121 mg/dL (70-105) H 01/09/19 18:00 Calcium 9.6 mg/dL (8.6-10.3) 01/09/19 18:00 Total Bilirubin 0.4 mg/dL (0.3-1.0) 01/09/19 18:00 AST 24 U/L (13-39) 01/09/19 18:00 ALT 21 U/L (7-52) 01/09/19 18:00 Alkaline Phosphatase 71 U/L (34-104) 01/09/19 18:00 Troponin I < 0.01 ng/mL (0.01-0.05) L 01/09/19 18:00 Total Protein 7.5 gm/dL (6.0-8.3) 01/09/19 18:00 Albumin 3.9 gm/dL (4.2-5.5) L 01/09/19 18:00 Globulin 3.6 gm/dL 01/09/19 18:00 Albumin/Globulin Ratio 1.1 (1.0-1.8) 01/09/19 18:00 Triglycerides 119 mg/dL (<150) 01/09/19 18:00 Cholesterol 192 mg/dL (<200) 01/09/19 18:00 LDL Cholesterol Direct 125 mg/dL (75-193) 01/09/19 18:00 HDL Cholesterol 66 mg/dL (23-92) 01/09/19 18:00 TSH 5.02 uIU/ml (0.34-5.60) 01/09/19 18:00 Urine Source CLEAN C 01/09/19 17:30 Urine Color YELLOW 01/09/19 17:30 Urine Clarity CLEAR (CLEAR) 01/09/19 17:30 Urine pH 5.5 (4.6 - 8.0) 01/09/19 17:30 Ur Specific [place] 1.020 (1.005-1.030) 01/09/19 17:30 Urine Protein NEGATIVE mg/dL (NEGATIVE) 01/09/19 17:30 Urine Glucose (UA) NEGATIVE mg/dL (NEGATIVE) 01/09/19 17:30 Urine Ketones NEGATIVE mg/dL (NEGATIVE) 01/09/19 17:30 Urine Blood NEGATIVE (NEGATIVE) 01/09/19 17:30 Urine Nitrate NEGATIVE (NEGATIVE) 01/09/19 17:30 Urine Bilirubin NEGATIVE (NEGATIVE) 01/09/19 17:30 Urine Urobilinogen 0.2 E.U./dL (0.2 - 1.0) 01/09/19 17:30 Ur Leukocyte Esterase NEGATIVE (NEGATIVE) 01/09/19 17:30 Urine RBC NONE SEEN /hpf (0-5) 01/09/19 17:30 Urine WBC 0-2 /hpf (0-5) 01/09/19 17:30 Ur Epithelial Cells NONE SEEN /lpf (FEW) 01/09/19 17:30 Urine Bacteria FEW /hpf (NONE SEEN) 01/09/19 17:30 Salicylates < 25.0 mg/L (30.0-100.0) L 01/09/19 18:00 Urine Opiates Screen NEGATIVE (NEGATIVE) 01/09/19 17:30 Urine Methadone Screen NEGATIVE (NEGATIVE) 01/09/19 17:30 Acetaminophen < 10.0 ug/mL (10.0-30.0) L 01/09/19 18:00 Ur Barbiturates Screen NEGATIVE (NEGATIVE) 01/09/19 17:30 Ur Tricyclics Screen NEGATIVE (NEGATIVE) 01/09/19 17:30 Ur Phencyclidine Scrn NEGATIVE (NEGATIVE) 01/09/19 17:30 Amphetamines Screen NEGATIVE (NEGATIVE) 01/09/19 17:30 U Methamphetamines Scrn NEGATIVE (NEGATIVE) 01/09/19 17:30 U Benzodiazepines Scrn NEGATIVE (NEGATIVE) 01/09/19 17:30 U Cocaine Metab Screen NEGATIVE (NEGATIVE) 01/09/19 17:30 U Cannabinoids Screen NEGATIVE (NEGATIVE) 01/09/19 17:30 Ethyl Alcohol < 10 mg/dL (0-10) 01/09/19 18:00 RPR NONREACTIVE (NONREACTIVE) 01/09/19 18:00 - Physical Exam Vitals and I&O: Vital Signs Temp 97.2 F 01/18/19 06:29 Pulse 60 01/18/19 06:29 Resp 18 01/18/19 06:29 BP 134/68 01/18/19 06:29 Pulse Ox 98 01/18/19 06:29 Intake & Output 01/17/19 01/18/19 01/18/19 18:59 06:59 18:59 Intake Total 800 390 Balance 800 390 Intake: Oral 800 390 Other: # Voids 3 2 # Bowel Movements 1 Active Medications: Current Medications Acetaminophen (Tylenol) 650 mg PO Q4HR PRN PRN Reason: Mild Pain 1-3/ Temp above 100 Stop: 03/10/19 22:35 Al Hydrox/Mg Hydrox/Simethicone (Maalox) 30 ml PO Q4HR PRN PRN Reason: GI DISTRESS Stop: 03/10/19 22:35 Artificial Tears (Lubrifresh Ophth Oint) 1 appl EACH EYE BID JERALD Stop: 03/14/19 08:59 Last Admin: 01/18/19 09:24 Dose: 1 appl Fluocinonide (Lidex 0.05%) 1 appl TP BID JERALD Stop: 03/18/19 16:59 Last Admin: 01/17/19 18:24 Dose: Not Given Lorazepam (Ativan) 0.5 mg PO Q4HR PRN; Protocol PRN Reason: Anxiety Stop: 02/08/19 22:35 Magnesium Hydroxide (Milk Of Magnesia) 30 ml PO HS PRN PRN Reason: Constipation Multivitamins/Vitamin C (Theragran) 1 tab PO DAILY JERALD Stop: 03/11/19 08:59 Last Admin: 01/17/19 09:02 Dose: 1 tab Quetiapine Fumarate (Seroquel) 37.5 mg PO BID JERALD; Protocol Stop: 03/18/19 08:59 Last Admin: 01/18/19 09:22 Dose: 37.5 mg Zolpidem Tartrate (Ambien) 5 mg PO HS PRN PRN Reason: Insomnia Stop: 03/10/19 22:35 HEENT: NC/AT, PERRLA Neck: Supple, No JVD Lungs: CTAB Abdomen: soft, non-tender, non-distended, positive bowel sound Extremities: excoriation Neurological: no change - Procedures Procedures: Procedures Procedure Code Date EXCISION OF R LOW LEG SUBCU/FASCIA, OPEN APPROACH [id number] 09/21/18 GROUP PSYCHOTHERAPY 22603 09/28/15 GROUP PSYCHOTHERAPY GZHZZZZ 09/28/15 Internal Medicine Assmt/Plan - Assessment Assessment: htn chf sz dementia djd gait instability skin rashes - Plan Plan: monitor fluid status titrate bp meds seizure precaution fall risk cpm topical cream added Nutritional Asmnt/Malnutr-PDOC - Dietary Evaluation Malnutrition Findings (Please click <Entered> for more info): Nutritional Asmnt/Malnutrition Start: 01/12/19 11: 45 Text: Status: Complete Freq: Protocol: Document 01/12/19 11:45 RHAQUE (Rec: 01/12/19 11:52 [email or web address]) Nutritional Asmnt/Malnutrition Patient General Information Nutritional Screening Moderate Risk Diagnosis Acute Psychosis Pertinent Medical Hx/Surgical Hx Seizure disorder, CHF, HTN, DJD, Psychiatric disorder, Dementia, Fall risk Subjective Information RN notes address noncompliance with meds. Spoke to ANAND Bahena , who described a pt who consumes his meals quite diligently. ~100% PO intake across the board, about 50% of snacks. Transferred from [facility] because of noncompliance. Upon visiting the Pt, he pointed to his ear, said he couldn't hear what i was asking him. When i repeated myself, the pt launched into a diatribe about how he was being treated and also about a statue of his grandfather that needed to be completed in [place]. I left when it became clear he had no desire to anwer dietary questions. Current Diet Order/ Nutrition Support Cardiac Patient / S.O Not Indicated Pertinent Medications Vit C, Seroquel, Ambien, MOM, Maalox Pertinent Labs BUN 35 H, Gluc 121 H, Alb 3.9 L Nutritional Hx/Data Height 1.63 m Height (Calculated Centimeters) 162.6 Current Weight (lbs) 80.739 kg Weight (Calculated Kilograms) 80.7 Weight (Calculated Grams) 77364.4 [place] Body Weight 130 lbs % [place] Body Weight 137 Body Mass Index (BMI) 30.5 Weight Status Overweight GI Symptoms GI Symptoms None Last BM 1x 01/11 Cultural/Ethnic/Zoroastrianism Belief None noted. Usual diet at home N/A Skin Integrity/Comment: Mode score 19 Current %PO Good (75-100%) Estimated Nutritional Goals BEE in Kcals: Adj wt of IBW Calories/Kcals/Kg 25 - 30 Kcals Calculated 162 - 1949 Protein: Adj wt of IBW Protein g/k.8 - 1 Protein Calculated 52-65 gm Prtn Fluid: ml 1624 - 1949 Nutritional Problem No current Nutrition Prob Problem N/A Malnutrition Alert Is there a minimum of two criteria No selected? Query Text:Check all the applicable criteria. A minimum of two criteria are recommended for diagnosis of either severe or non-severe malnutrition. Malnutrition Related to Morbid Obesity Malnutrition related to morbid obesity No Intervention/Recommendation Comments Recommend continuing diet as prescribed. Expected Outcomes/Goals Expected Outcomes/Goals - Maintain 100% PO intake - Labs return to WNL - Maintain GI function, Weight , and skin integrity
[2019-01-19] MEDS: Artificial Tear Ophth Oint 3.5 Gm Tube EACH EYE SCH ×2 (09:41→16:24)
[2019-01-19] MEDS: Multivitamin Tab PO SCH (09:41)
--- NOTE | 2019-01-19 13:16 | Progress Notes ---
DATE: 01/19/2019 Case was discussed with staff of the patient, reviewed records. The patient continues with unpredictable, impulsive. Continues to be unable to participate in a meaningful conversation or make safe plan for self-care. He isolates himself and he is hard of hearing. Dr. Philippe increased Seroquel to twice a day with no side effects, no sedation, no nausea and no extrapyramidal symptoms. We will continue the patient in group therapy, milieu therapy, and adjust medications as needed. JOB# [id number]
--- NOTE | 2019-01-19 20:30 | Internal Medicine Prog Note ---
Internal Medicine Subjective - Subjective Patient seen and examined:: with staff, chart reviewed Patient is:: awake, verbal, interactive Per staff patient has:: no adverse event, no episodes of fall, tolerating meds Internal Medicine Objective - Results Result Diagrams: 01/09/19 18:00 01/09/19 18:00 Recent Labs: Laboratory Last Values WBC 12.5 Th/cmm (4.8-10.8) H 01/09/19 18:00 RBC 5.30 Mil/cmm (3.80-5.80) 01/09/19 18:00 Hgb 16.3 gm/dL (12-16) 01/09/19 18:00 Hct 49.1 % (41.0-60) 01/09/19 18:00 MCV 92.7 fl (80-99) 01/09/19 18:00 MCH 30.8 pg (27.0-31.0) 01/09/19 18:00 MCHC Differential 33.2 pg (28.0-36.0) 01/09/19 18:00 RDW 14.7 % (11.5-20.0) 01/09/19 18:00 Plt Count 187 Th/cmm (150-400) 01/09/19 18:00 MPV 8.2 fl 01/09/19 18:00 Neutrophils % 78.5 % (40.0-80.0) 01/09/19 18:00 Lymphocytes % 17.9 % (20.0-50.0) L 01/09/19 18:00 Monocytes % 3.2 % (2.0-10.0) 01/09/19 18:00 Eosinophils % 0.4 % (0.0-5.0) 01/09/19 18:00 Basophils % 0.0 % (0.0-2.0) 01/09/19 18:00 Sodium 139 mEq/L (136-145) 01/09/19 18:00 Potassium 4.3 mEq/L (3.5-5.1) 01/09/19 18:00 Chloride 104 mEq/L (98-107) 01/09/19 18:00 Carbon Dioxide 24.7 mEq/L (21.0-31.0) 01/09/19 18:00 Anion Gap 14.6 (7.0-16.0) 01/09/19 18:00 BUN 35 mg/dL (7-25) H 01/09/19 18:00 Creatinine 1.3 mg/dL (0.7-1.3) 01/09/19 18:00 Est GFR ( Amer) TNP 01/09/19 18:00 Est GFR (Non-Af Amer) TNP 01/09/19 18:00 BUN/Creatinine Ratio 26.9 01/09/19 18:00 Glucose 121 mg/dL (70-105) H 01/09/19 18:00 Calcium 9.6 mg/dL (8.6-10.3) 01/09/19 18:00 Total Bilirubin 0.4 mg/dL (0.3-1.0) 01/09/19 18:00 AST 24 U/L (13-39) 01/09/19 18:00 ALT 21 U/L (7-52) 01/09/19 18:00 Alkaline Phosphatase 71 U/L (34-104) 01/09/19 18:00 Troponin I < 0.01 ng/mL (0.01-0.05) L 01/09/19 18:00 Total Protein 7.5 gm/dL (6.0-8.3) 01/09/19 18:00 Albumin 3.9 gm/dL (4.2-5.5) L 01/09/19 18:00 Globulin 3.6 gm/dL 01/09/19 18:00 Albumin/Globulin Ratio 1.1 (1.0-1.8) 01/09/19 18:00 Triglycerides 119 mg/dL (<150) 01/09/19 18:00 Cholesterol 192 mg/dL (<200) 01/09/19 18:00 LDL Cholesterol Direct 125 mg/dL (75-193) 01/09/19 18:00 HDL Cholesterol 66 mg/dL (23-92) 01/09/19 18:00 TSH 5.02 uIU/ml (0.34-5.60) 01/09/19 18:00 Urine Source CLEAN C 01/09/19 17:30 Urine Color YELLOW 01/09/19 17:30 Urine Clarity CLEAR (CLEAR) 01/09/19 17:30 Urine pH 5.5 (4.6 - 8.0) 01/09/19 17:30 Ur Specific [place] 1.020 (1.005-1.030) 01/09/19 17:30 Urine Protein NEGATIVE mg/dL (NEGATIVE) 01/09/19 17:30 Urine Glucose (UA) NEGATIVE mg/dL (NEGATIVE) 01/09/19 17:30 Urine Ketones NEGATIVE mg/dL (NEGATIVE) 01/09/19 17:30 Urine Blood NEGATIVE (NEGATIVE) 01/09/19 17:30 Urine Nitrate NEGATIVE (NEGATIVE) 01/09/19 17:30 Urine Bilirubin NEGATIVE (NEGATIVE) 01/09/19 17:30 Urine Urobilinogen 0.2 E.U./dL (0.2 - 1.0) 01/09/19 17:30 Ur Leukocyte Esterase NEGATIVE (NEGATIVE) 01/09/19 17:30 Urine RBC NONE SEEN /hpf (0-5) 01/09/19 17:30 Urine WBC 0-2 /hpf (0-5) 01/09/19 17:30 Ur Epithelial Cells NONE SEEN /lpf (FEW) 01/09/19 17:30 Urine Bacteria FEW /hpf (NONE SEEN) 01/09/19 17:30 Salicylates < 25.0 mg/L (30.0-100.0) L 01/09/19 18:00 Urine Opiates Screen NEGATIVE (NEGATIVE) 01/09/19 17:30 Urine Methadone Screen NEGATIVE (NEGATIVE) 01/09/19 17:30 Acetaminophen < 10.0 ug/mL (10.0-30.0) L 01/09/19 18:00 Ur Barbiturates Screen NEGATIVE (NEGATIVE) 01/09/19 17:30 Ur Tricyclics Screen NEGATIVE (NEGATIVE) 01/09/19 17:30 Ur Phencyclidine Scrn NEGATIVE (NEGATIVE) 01/09/19 17:30 Amphetamines Screen NEGATIVE (NEGATIVE) 01/09/19 17:30 U Methamphetamines Scrn NEGATIVE (NEGATIVE) 01/09/19 17:30 U Benzodiazepines Scrn NEGATIVE (NEGATIVE) 01/09/19 17:30 U Cocaine Metab Screen NEGATIVE (NEGATIVE) 01/09/19 17:30 U Cannabinoids Screen NEGATIVE (NEGATIVE) 01/09/19 17:30 Ethyl Alcohol < 10 mg/dL (0-10) 01/09/19 18:00 RPR NONREACTIVE (NONREACTIVE) 01/09/19 18:00 - Physical Exam Vitals and I&O: Vital Signs Temp 97.0 F 01/19/19 14:43 Pulse 66 01/19/19 20:00 Resp 18 01/19/19 20:00 BP 124/81 01/19/19 14:43 Pulse Ox 98 01/19/19 14:43 Intake & Output 01/19/19 01/19/19 01/20/19 06:59 18:59 06:59 Intake Total 240 900 Output Total 1 Balance 239 900 Intake: Oral 240 900 Output: Urine/Stool Mix 1 Other: # Voids 1 4 # Bowel Movements 1 Active Medications: Current Medications Acetaminophen (Tylenol) 650 mg PO Q4HR PRN PRN Reason: Mild Pain 1-3/ Temp above 100 Stop: 03/10/19 22:35 Al Hydrox/Mg Hydrox/Simethicone (Maalox) 30 ml PO Q4HR PRN PRN Reason: GI DISTRESS Stop: 03/10/19 22:35 Artificial Tears (Lubrifresh Ophth Oint) 1 appl EACH EYE BID JERALD Stop: 03/14/19 08:59 Last Admin: 01/19/19 16:24 Dose: 1 appl Fluocinonide (Lidex 0.05%) 1 appl TP BID JERALD Stop: 03/18/19 16:59 Last Admin: 01/19/19 16:24 Dose: 1 appl Lorazepam (Ativan) 0.5 mg PO Q4HR PRN; Protocol PRN Reason: Anxiety Stop: 02/08/19 22:35 Last Admin: 01/19/19 02:19 Dose: 0.5 mg Magnesium Hydroxide (Milk Of Magnesia) 30 ml PO HS PRN PRN Reason: Constipation Multivitamins/Vitamin C (Theragran) 1 tab PO DAILY JERALD Stop: 03/11/19 08:59 Last Admin: 01/19/19 09:41 Dose: 1 tab Quetiapine Fumarate (Seroquel) 37.5 mg PO BID JERALD; Protocol Stop: 03/18/19 08:59 Last Admin: 01/19/19 16:25 Dose: 37.5 mg Zolpidem Tartrate (Ambien) 5 mg PO HS PRN PRN Reason: Insomnia Stop: 03/10/19 22:35 Last Admin: 01/18/19 20:58 Dose: 5 mg HEENT: NC/AT, PERRLA Neck: Supple, No JVD Lungs: CTAB Abdomen: soft, non-tender, non-distended, positive bowel sound Extremities: excoriation Neurological: no change - Procedures Procedures: Procedures Procedure Code Date EXCISION OF R LOW LEG SUBCU/FASCIA, OPEN APPROACH [id number] 09/21/18 GROUP PSYCHOTHERAPY 39992 09/28/15 GROUP PSYCHOTHERAPY GZHZZZZ 09/28/15 Internal Medicine Assmt/Plan - Assessment Assessment: htn chf sz dementia djd gait instability skin rashes - Plan Plan: monitor fluid status titrate bp meds seizure precaution fall risk cpm topical cream added Nutritional Asmnt/Malnutr-PDOC - Dietary Evaluation Malnutrition Findings (Please click <Entered> for more info): Nutritional Asmnt/Malnutrition Start: 01/12/19 11: 45 Text: Status: Complete Freq: Protocol: Document 01/12/19 11:45 RHAQUE (Rec: 01/12/19 11:52 [email or web address]) Nutritional Asmnt/Malnutrition Patient General Information Nutritional Screening Moderate Risk Diagnosis Acute Psychosis Pertinent Medical Hx/Surgical Hx Seizure disorder, CHF, HTN, DJD, Psychiatric disorder, Dementia, Fall risk Subjective Information RN notes address noncompliance with meds. Spoke to ANAND Bahena , who described a pt who consumes his meals quite diligently. ~100% PO intake across the board, about 50% of snacks. Transferred from [facility] because of noncompliance. Upon visiting the Pt, he pointed to his ear, said he couldn't hear what i was asking him. When i repeated myself, the pt launched into a diatribe about how he was being treated and also about a statue of his grandfather that needed to be completed in [place]. I left when it became clear he had no desire to anwer dietary questions. Current Diet Order/ Nutrition Support Cardiac Patient / S.O Not Indicated Pertinent Medications Vit C, Seroquel, Ambien, MOM, Maalox Pertinent Labs BUN 35 H, Gluc 121 H, Alb 3.9 L Nutritional Hx/Data Height 1.63 m Height (Calculated Centimeters) 162.6 Current Weight (lbs) 80.739 kg Weight (Calculated Kilograms) 80.7 Weight (Calculated Grams) 89594.4 [place] Body Weight 130 lbs % [place] Body Weight 137 Body Mass Index (BMI) 30.5 Weight Status Overweight GI Symptoms GI Symptoms None Last BM 1x 01/11 Cultural/Ethnic/Anglican Belief None noted. Usual diet at home N/A Skin Integrity/Comment: Mode score 19 Current %PO Good (75-100%) Estimated Nutritional Goals BEE in Kcals: Adj wt of IBW Calories/Kcals/Kg 25 - 30 Kcals Calculated 1625 - 1950 Protein: Adj wt of IBW Protein g/k.8 - 1 Protein Calculated 52-65 gm Prtn Fluid: ml 1625 - 1950 Nutritional Problem No current Nutrition Prob Problem N/A Malnutrition Alert Is there a minimum of two criteria No selected? Query Text:Check all the applicable criteria. A minimum of two criteria are recommended for diagnosis of either severe or non-severe malnutrition. Malnutrition Related to Morbid Obesity Malnutrition related to morbid obesity No Intervention/Recommendation Comments Recommend continuing diet as prescribed. Expected Outcomes/Goals Expected Outcomes/Goals - Maintain 100% PO intake - Labs return to WNL - Maintain GI function, Weight , and skin integrity
[2019-01-20] MEDS: Multivitamin Tab PO SCH ×2 (08:33→08:40)
[2019-01-20] MEDS: Artificial Tear Ophth Oint 3.5 Gm Tube EACH EYE SCH ×2 (08:34→16:33)
--- NOTE | 2019-01-20 11:47 | Progress Notes ---
DATE: 01/17/2019 PSYCHIATRIC PROGRESS NOTE DATE OF SERVICE: 01/17/2019 SUBJECTIVE: Chart reviewed and the patient interviewed. Also discussed the patient's condition with the staff and reviewed records and labs. The patient is still anxious and is still easily agitated. The patient also is complaining of "itching." The patient also reports some auditory hallucinations. Also, still withdrawn and is still guarded and gets irritable and easily agitated and seems to be suspicious and paranoid. Otherwise, the patient is compliant with taking his medications with no side effects of Seroquel. ASSESSMENT: The patient is still agitated and is still psychotic. TREATMENT PLAN: Continue to monitor behavior and condition closely. Also, we will increase Seroquel to 37.5 mg twice a day and we will continue to monitor his behavior and his condition closely. JOB# [id number]
--- NOTE | 2019-01-20 13:13 | Internal Medicine Prog Note ---
Internal Medicine Subjective - Subjective Patient seen and examined:: with staff, chart reviewed Patient is:: awake, verbal, interactive Per staff patient has:: no adverse event, no episodes of fall, tolerating meds Internal Medicine Objective - Results Result Diagrams: 01/09/19 18:00 01/09/19 18:00 Recent Labs: Laboratory Last Values WBC 12.5 Th/cmm (4.8-10.8) H 01/09/19 18:00 RBC 5.30 Mil/cmm (3.80-5.80) 01/09/19 18:00 Hgb 16.3 gm/dL (12-16) 01/09/19 18:00 Hct 49.1 % (41.0-60) 01/09/19 18:00 MCV 92.7 fl (80-99) 01/09/19 18:00 MCH 30.8 pg (27.0-31.0) 01/09/19 18:00 MCHC Differential 33.2 pg (28.0-36.0) 01/09/19 18:00 RDW 14.7 % (11.5-20.0) 01/09/19 18:00 Plt Count 187 Th/cmm (150-400) 01/09/19 18:00 MPV 8.2 fl 01/09/19 18:00 Neutrophils % 78.5 % (40.0-80.0) 01/09/19 18:00 Lymphocytes % 17.9 % (20.0-50.0) L 01/09/19 18:00 Monocytes % 3.2 % (2.0-10.0) 01/09/19 18:00 Eosinophils % 0.4 % (0.0-5.0) 01/09/19 18:00 Basophils % 0.0 % (0.0-2.0) 01/09/19 18:00 Sodium 139 mEq/L (136-145) 01/09/19 18:00 Potassium 4.3 mEq/L (3.5-5.1) 01/09/19 18:00 Chloride 104 mEq/L (98-107) 01/09/19 18:00 Carbon Dioxide 24.7 mEq/L (21.0-31.0) 01/09/19 18:00 Anion Gap 14.6 (7.0-16.0) 01/09/19 18:00 BUN 35 mg/dL (7-25) H 01/09/19 18:00 Creatinine 1.3 mg/dL (0.7-1.3) 01/09/19 18:00 Est GFR ( Amer) TNP 01/09/19 18:00 Est GFR (Non-Af Amer) TNP 01/09/19 18:00 BUN/Creatinine Ratio 26.9 01/09/19 18:00 Glucose 121 mg/dL (70-105) H 01/09/19 18:00 Calcium 9.6 mg/dL (8.6-10.3) 01/09/19 18:00 Total Bilirubin 0.4 mg/dL (0.3-1.0) 01/09/19 18:00 AST 24 U/L (13-39) 01/09/19 18:00 ALT 21 U/L (7-52) 01/09/19 18:00 Alkaline Phosphatase 71 U/L (34-104) 01/09/19 18:00 Troponin I < 0.01 ng/mL (0.01-0.05) L 01/09/19 18:00 Total Protein 7.5 gm/dL (6.0-8.3) 01/09/19 18:00 Albumin 3.9 gm/dL (4.2-5.5) L 01/09/19 18:00 Globulin 3.6 gm/dL 01/09/19 18:00 Albumin/Globulin Ratio 1.1 (1.0-1.8) 01/09/19 18:00 Triglycerides 119 mg/dL (<150) 01/09/19 18:00 Cholesterol 192 mg/dL (<200) 01/09/19 18:00 LDL Cholesterol Direct 125 mg/dL (75-193) 01/09/19 18:00 HDL Cholesterol 66 mg/dL (23-92) 01/09/19 18:00 TSH 5.02 uIU/ml (0.34-5.60) 01/09/19 18:00 Urine Source CLEAN C 01/09/19 17:30 Urine Color YELLOW 01/09/19 17:30 Urine Clarity CLEAR (CLEAR) 01/09/19 17:30 Urine pH 5.5 (4.6 - 8.0) 01/09/19 17:30 Ur Specific [place] 1.020 (1.005-1.030) 01/09/19 17:30 Urine Protein NEGATIVE mg/dL (NEGATIVE) 01/09/19 17:30 Urine Glucose (UA) NEGATIVE mg/dL (NEGATIVE) 01/09/19 17:30 Urine Ketones NEGATIVE mg/dL (NEGATIVE) 01/09/19 17:30 Urine Blood NEGATIVE (NEGATIVE) 01/09/19 17:30 Urine Nitrate NEGATIVE (NEGATIVE) 01/09/19 17:30 Urine Bilirubin NEGATIVE (NEGATIVE) 01/09/19 17:30 Urine Urobilinogen 0.2 E.U./dL (0.2 - 1.0) 01/09/19 17:30 Ur Leukocyte Esterase NEGATIVE (NEGATIVE) 01/09/19 17:30 Urine RBC NONE SEEN /hpf (0-5) 01/09/19 17:30 Urine WBC 0-2 /hpf (0-5) 01/09/19 17:30 Ur Epithelial Cells NONE SEEN /lpf (FEW) 01/09/19 17:30 Urine Bacteria FEW /hpf (NONE SEEN) 01/09/19 17:30 Salicylates < 25.0 mg/L (30.0-100.0) L 01/09/19 18:00 Urine Opiates Screen NEGATIVE (NEGATIVE) 01/09/19 17:30 Urine Methadone Screen NEGATIVE (NEGATIVE) 01/09/19 17:30 Acetaminophen < 10.0 ug/mL (10.0-30.0) L 01/09/19 18:00 Ur Barbiturates Screen NEGATIVE (NEGATIVE) 01/09/19 17:30 Ur Tricyclics Screen NEGATIVE (NEGATIVE) 01/09/19 17:30 Ur Phencyclidine Scrn NEGATIVE (NEGATIVE) 01/09/19 17:30 Amphetamines Screen NEGATIVE (NEGATIVE) 01/09/19 17:30 U Methamphetamines Scrn NEGATIVE (NEGATIVE) 01/09/19 17:30 U Benzodiazepines Scrn NEGATIVE (NEGATIVE) 01/09/19 17:30 U Cocaine Metab Screen NEGATIVE (NEGATIVE) 01/09/19 17:30 U Cannabinoids Screen NEGATIVE (NEGATIVE) 01/09/19 17:30 Ethyl Alcohol < 10 mg/dL (0-10) 01/09/19 18:00 RPR NONREACTIVE (NONREACTIVE) 01/09/19 18:00 - Physical Exam Vitals and I&O: Vital Signs Temp 97.5 F 01/20/19 08:00 Pulse 65 01/20/19 08:00 Resp 19 01/20/19 08:00 BP 119/59 01/20/19 08:00 Pulse Ox 95 01/20/19 06:28 Intake & Output 01/19/19 01/20/19 01/20/19 18:59 06:59 18:59 Intake Total 900 240 Balance 900 240 Intake: Oral 900 240 Other: # Voids 4 2 # Bowel Movements 1 Active Medications: Current Medications Acetaminophen (Tylenol) 650 mg PO Q4HR PRN PRN Reason: Mild Pain 1-3/ Temp above 100 Stop: 03/10/19 22:35 Al Hydrox/Mg Hydrox/Simethicone (Maalox) 30 ml PO Q4HR PRN PRN Reason: GI DISTRESS Stop: 03/10/19 22:35 Artificial Tears (Lubrifresh Ophth Oint) 1 appl EACH EYE BID JERALD Stop: 03/14/19 08:59 Last Admin: 01/20/19 08:34 Dose: 1 appl Fluocinonide (Lidex 0.05%) 1 appl TP BID JERALD Stop: 03/18/19 16:59 Last Admin: 01/20/19 08:34 Dose: 1 appl Lorazepam (Ativan) 0.5 mg PO Q4HR PRN; Protocol PRN Reason: Anxiety Stop: 02/08/19 22:35 Last Admin: 01/19/19 02:19 Dose: 0.5 mg Magnesium Hydroxide (Milk Of Magnesia) 30 ml PO HS PRN PRN Reason: Constipation Multivitamins/Vitamin C (Theragran) 1 tab PO DAILY JERALD Stop: 03/11/19 08:59 Last Admin: 01/20/19 08:40 Dose: Not Given Quetiapine Fumarate (Seroquel) 37.5 mg PO BID JERALD; Protocol Stop: 03/18/19 08:59 Last Admin: 01/20/19 08:39 Dose: Not Given Zolpidem Tartrate (Ambien) 5 mg PO HS PRN PRN Reason: Insomnia Stop: 03/10/19 22:35 Last Admin: 01/19/19 20:59 Dose: 5 mg HEENT: NC/AT, PERRLA Neck: Supple, No JVD Lungs: CTAB Abdomen: soft, non-tender, non-distended, positive bowel sound Extremities: excoriation Neurological: no change - Procedures Procedures: Procedures Procedure Code Date EXCISION OF R LOW LEG SUBCU/FASCIA, OPEN APPROACH [id number] 09/21/18 GROUP PSYCHOTHERAPY 62172 09/28/15 GROUP PSYCHOTHERAPY GZHZZZZ 09/28/15 Internal Medicine Assmt/Plan - Assessment Assessment: htn chf sz dementia djd gait instability skin rashes - Plan Plan: monitor fluid status titrate bp meds seizure precaution fall risk cpm topical cream added Nutritional Asmnt/Malnutr-PDOC - Dietary Evaluation Malnutrition Findings (Please click <Entered> for more info): Nutritional Asmnt/Malnutrition Start: 01/12/19 11: 45 Text: Status: Complete Freq: Protocol: Document 01/12/19 11:45 RHAQUE (Rec: 01/12/19 11:52 [email or web address]) Nutritional Asmnt/Malnutrition Patient General Information Nutritional Screening Moderate Risk Diagnosis Acute Psychosis Pertinent Medical Hx/Surgical Hx Seizure disorder, CHF, HTN, DJD, Psychiatric disorder, Dementia, Fall risk Subjective Information RN notes address noncompliance with meds. Spoke to ANAND Bahena , who described a pt who consumes his meals quite diligently. ~100% PO intake across the board, about 50% of snacks. Transferred from [facility] because of noncompliance. Upon visiting the Pt, he pointed to his ear, said he couldn't hear what i was asking him. When i repeated myself, the pt launched into a diatribe about how he was being treated and also about a statue of his grandfather that needed to be completed in [place]. I left when it became clear he had no desire to anwer dietary questions. Current Diet Order/ Nutrition Support Cardiac Patient / S.O Not Indicated Pertinent Medications Vit C, Seroquel, Ambien, MOM, Maalox Pertinent Labs BUN 35 H, Gluc 121 H, Alb 3.9 L Nutritional Hx/Data Height 1.63 m Height (Calculated Centimeters) 162.6 Current Weight (lbs) 80.739 kg Weight (Calculated Kilograms) 80.7 Weight (Calculated Grams) 51486.4 [place] Body Weight 130 lbs % [place] Body Weight 137 Body Mass Index (BMI) 30.5 Weight Status Overweight GI Symptoms GI Symptoms None Last BM 1x 01/11 Cultural/Ethnic/Adventist Belief None noted. Usual diet at home N/A Skin Integrity/Comment: Mode score 19 Current %PO Good (75-100%) Estimated Nutritional Goals BEE in Kcals: Adj wt of IBW Calories/Kcals/Kg 25 - 30 Kcals Calculated 1625 - 1950 Protein: Adj wt of IBW Protein g/k.8 - 1 Protein Calculated 52-65 gm Prtn Fluid: ml 1625 - 1950 Nutritional Problem No current Nutrition Prob Problem N/A Malnutrition Alert Is there a minimum of two criteria No selected? Query Text:Check all the applicable criteria. A minimum of two criteria are recommended for diagnosis of either severe or non-severe malnutrition. Malnutrition Related to Morbid Obesity Malnutrition related to morbid obesity No Intervention/Recommendation Comments Recommend continuing diet as prescribed. Expected Outcomes/Goals Expected Outcomes/Goals - Maintain 100% PO intake - Labs return to WNL - Maintain GI function, Weight , and skin integrity
--- NOTE | 2019-01-20 17:58 | Progress Notes ---
DATE: 01/16/2019 PSYCHIATRIC PROGRESS NOTE DATE OF SERVICE: 01/16/2019 SUBJECTIVE: Chart reviewed and the patient interviewed, also discussed the patient's condition with the staff and reviewed records and labs. The patient continued to be forgetful and confused. The patient also still needs lots of redirections. Also, is still impulsive. DICTATION ENDS HERE. JOB# [id number]
--- NOTE | 2019-01-20 18:16 | Progress Notes ---
DATE: 01/18/2019 PSYCHIATRIC PROGRESS NOTE DATE: 01/18/2019 SUBJECTIVE: Chart reviewed and the patient interviewed, also discussed the patient's condition with the staff and reviewed records and labs. The patient is still easily agitated and easily irritable. The patient also is still suspicious and is still paranoid. The patient also still has problems with compliance with taking his medications and the patient refused to take Seroquel yesterday. Otherwise, the patient was compliant with taking his medications prior to that and he also slept better yesterday. ASSESSMENT: The patient is still agitated and confused. TREATMENT PLAN: Continue to monitor his behavior and condition closely. Also, continue adjusting psychotropic medications and also working on his compliance with taking his medications. [facility]# [id number]
--- NOTE | 2019-01-20 18:23 | Progress Notes ---
DATE: 01/16/2019 PSYCHIATRIC PROGRESS NOTE DATE OF SERVICE: 01/16/2019 SUBJECTIVE: Chart reviewed and the patient interviewed. Also discussed the patient's condition with the staff and reviewed records and labs. The patient continued to be confused and still needs lots of redirections. The patient also is still easily agitated and still has difficulty following directions because of his confusion. The patient also still has episodes of irritability and anger and impulsivity. Otherwise, the patient is compliant with taking his medications with no side effect of medications. The patient continued to take Seroquel 25 mg twice a day with no side effects. ASSESSMENT: The patient is still confused and agitated and needs lots of redirections. TREATMENT PLAN: Continue DICTATION ENDS HERE. JOB# [id number]
--- NOTE | 2019-01-20 18:25 | Progress Notes ---
DATE: 01/16/2019 PSYCHIATRIC PROGRESS NOTE DATE OF SERVICE: 01/16/2019 Chart reviewed and the patient interviewed, also discussed the patient's condition with the staff and reviewed records and labs. The patient continued to be confused and forgetful. The patient also continued to be impulsive and is having unpredictable behavior. The patient also still needs lots of redirections. At the same time, the patient continued to be easily irritable and agitated and he is compliant with taking his medications with no side effect of Seroquel in a dose of 25 mg twice a day. ASSESSMENT: The patient is still agitated and in irritable mood. TREATMENT PLAN: Continue to monitor his behavior and his condition closely. Also, continue adjusting psychotropic medications and follow up closely. [facility]# [id number]
--- NOTE | 2019-01-20 21:46 | Progress Notes ---
DATE: 01/20/2019 Case was discussed with staff of the patient, reviewed records. The patient continues to be confused. He is hard of hearing. Continues to be unpredictable, impulsive, guarded at times, suspicious, paranoid, unable to make safe plan for self-care and probably he is hard of hearing, make it harder for him, make him more paranoid. No side effects with the medication, no sedation, no nausea, no extrapyramidal symptoms. We will continue outpatient group therapy, milieu therapy, adjust medication as needed. JOB# [id number]
[2019-01-21] MEDS: Multivitamin Tab PO SCH (09:42)
[2019-01-21] MEDS: Artificial Tear Ophth Oint 3.5 Gm Tube EACH EYE SCH ×2 (09:45→18:47)
--- NOTE | 2019-01-21 11:11 | Internal Medicine Prog Note ---
Internal Medicine Subjective - Subjective Patient seen and examined:: with staff, chart reviewed Patient is:: awake, verbal, interactive Per staff patient has:: no adverse event, no episodes of fall, tolerating meds Internal Medicine Objective - Results Result Diagrams: 01/09/19 18:00 01/09/19 18:00 Recent Labs: Laboratory Last Values WBC 12.5 Th/cmm (4.8-10.8) H 01/09/19 18:00 RBC 5.30 Mil/cmm (3.80-5.80) 01/09/19 18:00 Hgb 16.3 gm/dL (12-16) 01/09/19 18:00 Hct 49.1 % (41.0-60) 01/09/19 18:00 MCV 92.7 fl (80-99) 01/09/19 18:00 MCH 30.8 pg (27.0-31.0) 01/09/19 18:00 MCHC Differential 33.2 pg (28.0-36.0) 01/09/19 18:00 RDW 14.7 % (11.5-20.0) 01/09/19 18:00 Plt Count 187 Th/cmm (150-400) 01/09/19 18:00 MPV 8.2 fl 01/09/19 18:00 Neutrophils % 78.5 % (40.0-80.0) 01/09/19 18:00 Lymphocytes % 17.9 % (20.0-50.0) L 01/09/19 18:00 Monocytes % 3.2 % (2.0-10.0) 01/09/19 18:00 Eosinophils % 0.4 % (0.0-5.0) 01/09/19 18:00 Basophils % 0.0 % (0.0-2.0) 01/09/19 18:00 Sodium 139 mEq/L (136-145) 01/09/19 18:00 Potassium 4.3 mEq/L (3.5-5.1) 01/09/19 18:00 Chloride 104 mEq/L (98-107) 01/09/19 18:00 Carbon Dioxide 24.7 mEq/L (21.0-31.0) 01/09/19 18:00 Anion Gap 14.6 (7.0-16.0) 01/09/19 18:00 BUN 35 mg/dL (7-25) H 01/09/19 18:00 Creatinine 1.3 mg/dL (0.7-1.3) 01/09/19 18:00 Est GFR ( Amer) TNP 01/09/19 18:00 Est GFR (Non-Af Amer) TNP 01/09/19 18:00 BUN/Creatinine Ratio 26.9 01/09/19 18:00 Glucose 121 mg/dL (70-105) H 01/09/19 18:00 Calcium 9.6 mg/dL (8.6-10.3) 01/09/19 18:00 Total Bilirubin 0.4 mg/dL (0.3-1.0) 01/09/19 18:00 AST 24 U/L (13-39) 01/09/19 18:00 ALT 21 U/L (7-52) 01/09/19 18:00 Alkaline Phosphatase 71 U/L (34-104) 01/09/19 18:00 Troponin I < 0.01 ng/mL (0.01-0.05) L 01/09/19 18:00 Total Protein 7.5 gm/dL (6.0-8.3) 01/09/19 18:00 Albumin 3.9 gm/dL (4.2-5.5) L 01/09/19 18:00 Globulin 3.6 gm/dL 01/09/19 18:00 Albumin/Globulin Ratio 1.1 (1.0-1.8) 01/09/19 18:00 Triglycerides 119 mg/dL (<150) 01/09/19 18:00 Cholesterol 192 mg/dL (<200) 01/09/19 18:00 LDL Cholesterol Direct 125 mg/dL (75-193) 01/09/19 18:00 HDL Cholesterol 66 mg/dL (23-92) 01/09/19 18:00 TSH 5.02 uIU/ml (0.34-5.60) 01/09/19 18:00 Urine Source CLEAN C 01/09/19 17:30 Urine Color YELLOW 01/09/19 17:30 Urine Clarity CLEAR (CLEAR) 01/09/19 17:30 Urine pH 5.5 (4.6 - 8.0) 01/09/19 17:30 Ur Specific [place] 1.020 (1.005-1.030) 01/09/19 17:30 Urine Protein NEGATIVE mg/dL (NEGATIVE) 01/09/19 17:30 Urine Glucose (UA) NEGATIVE mg/dL (NEGATIVE) 01/09/19 17:30 Urine Ketones NEGATIVE mg/dL (NEGATIVE) 01/09/19 17:30 Urine Blood NEGATIVE (NEGATIVE) 01/09/19 17:30 Urine Nitrate NEGATIVE (NEGATIVE) 01/09/19 17:30 Urine Bilirubin NEGATIVE (NEGATIVE) 01/09/19 17:30 Urine Urobilinogen 0.2 E.U./dL (0.2 - 1.0) 01/09/19 17:30 Ur Leukocyte Esterase NEGATIVE (NEGATIVE) 01/09/19 17:30 Urine RBC NONE SEEN /hpf (0-5) 01/09/19 17:30 Urine WBC 0-2 /hpf (0-5) 01/09/19 17:30 Ur Epithelial Cells NONE SEEN /lpf (FEW) 01/09/19 17:30 Urine Bacteria FEW /hpf (NONE SEEN) 01/09/19 17:30 Salicylates < 25.0 mg/L (30.0-100.0) L 01/09/19 18:00 Urine Opiates Screen NEGATIVE (NEGATIVE) 01/09/19 17:30 Urine Methadone Screen NEGATIVE (NEGATIVE) 01/09/19 17:30 Acetaminophen < 10.0 ug/mL (10.0-30.0) L 01/09/19 18:00 Ur Barbiturates Screen NEGATIVE (NEGATIVE) 01/09/19 17:30 Ur Tricyclics Screen NEGATIVE (NEGATIVE) 01/09/19 17:30 Ur Phencyclidine Scrn NEGATIVE (NEGATIVE) 01/09/19 17:30 Amphetamines Screen NEGATIVE (NEGATIVE) 01/09/19 17:30 U Methamphetamines Scrn NEGATIVE (NEGATIVE) 01/09/19 17:30 U Benzodiazepines Scrn NEGATIVE (NEGATIVE) 01/09/19 17:30 U Cocaine Metab Screen NEGATIVE (NEGATIVE) 01/09/19 17:30 U Cannabinoids Screen NEGATIVE (NEGATIVE) 01/09/19 17:30 Ethyl Alcohol < 10 mg/dL (0-10) 01/09/19 18:00 RPR NONREACTIVE (NONREACTIVE) 01/09/19 18:00 - Physical Exam Vitals and I&O: Vital Signs Temp 97.9 F 01/21/19 06:36 Pulse 50 01/21/19 06:36 Resp 18 01/21/19 06:36 BP 136/69 01/21/19 06:36 Pulse Ox 97 01/21/19 06:36 Intake & Output 01/20/19 01/21/19 01/21/19 18:59 06:59 18:59 Intake Total 950 480 Output Total 1 Balance 950 479 Intake: Oral 950 480 Output: Urine/Stool Mix 1 Other: # Voids 4 1 # Bowel Movements 0 Active Medications: Current Medications Acetaminophen (Tylenol) 650 mg PO Q4HR PRN PRN Reason: Mild Pain 1-3/ Temp above 100 Stop: 03/10/19 22:35 Al Hydrox/Mg Hydrox/Simethicone (Maalox) 30 ml PO Q4HR PRN PRN Reason: GI DISTRESS Stop: 03/10/19 22:35 Artificial Tears (Lubrifresh Ophth Oint) 1 appl EACH EYE BID JERALD Stop: 03/14/19 08:59 Last Admin: 01/21/19 09:45 Dose: 1 appl Fluocinonide (Lidex 0.05%) 1 appl TP BID JERALD Stop: 03/18/19 16:59 Last Admin: 01/21/19 09:45 Dose: 1 appl Lorazepam (Ativan) 0.5 mg PO Q4HR PRN; Protocol PRN Reason: Anxiety Stop: 02/08/19 22:35 Last Admin: 01/19/19 02:19 Dose: 0.5 mg Magnesium Hydroxide (Milk Of Magnesia) 30 ml PO HS PRN PRN Reason: Constipation Multivitamins/Vitamin C (Theragran) 1 tab PO DAILY JERALD Stop: 03/11/19 08:59 Last Admin: 01/21/19 09:42 Dose: Not Given Quetiapine Fumarate (Seroquel) 37.5 mg PO BID JERALD; Protocol Stop: 03/18/19 08:59 Last Admin: 01/21/19 09:42 Dose: Not Given Zolpidem Tartrate (Ambien) 5 mg PO HS PRN PRN Reason: Insomnia Stop: 03/10/19 22:35 Last Admin: 01/19/19 20:59 Dose: 5 mg HEENT: NC/AT, PERRLA Neck: Supple, No JVD Lungs: CTAB Abdomen: soft, non-tender, non-distended, positive bowel sound Extremities: excoriation Neurological: no change - Procedures Procedures: Procedures Procedure Code Date EXCISION OF R LOW LEG SUBCU/FASCIA, OPEN APPROACH [id number] 09/21/18 GROUP PSYCHOTHERAPY 73636 09/28/15 GROUP PSYCHOTHERAPY GZHZZZZ 09/28/15 Internal Medicine Assmt/Plan - Assessment Assessment: htn chf sz dementia djd gait instability skin rashes - Plan Plan: monitor fluid status titrate bp meds seizure precaution fall risk cpm topical cream added Nutritional Asmnt/Malnutr-PDOC - Dietary Evaluation Malnutrition Findings (Please click <Entered> for more info): Nutritional Asmnt/Malnutrition Start: 01/12/19 11: 45 Text: Status: Complete Freq: Protocol: Document 01/12/19 11:45 RHAQUE (Rec: 01/12/19 11:52 [email or web address]) Nutritional Asmnt/Malnutrition Patient General Information Nutritional Screening Moderate Risk Diagnosis Acute Psychosis Pertinent Medical Hx/Surgical Hx Seizure disorder, CHF, HTN, DJD, Psychiatric disorder, Dementia, Fall risk Subjective Information RN notes address noncompliance with meds. Spoke to ANAND Bahena , who described a pt who consumes his meals quite diligently. ~100% PO intake across the board, about 50% of snacks. Transferred from [facility] because of noncompliance. Upon visiting the Pt, he pointed to his ear, said he couldn't hear what i was asking him. When i repeated myself, the pt launched into a diatribe about how he was being treated and also about a statue of his grandfather that needed to be completed in [place]. I left when it became clear he had no desire to anwer dietary questions. Current Diet Order/ Nutrition Support Cardiac Patient / S.O Not Indicated Pertinent Medications Vit C, Seroquel, Ambien, MOM, Maalox Pertinent Labs BUN 35 H, Gluc 121 H, Alb 3.9 L Nutritional Hx/Data Height 1.63 m Height (Calculated Centimeters) 162.6 Current Weight (lbs) 80.739 kg Weight (Calculated Kilograms) 80.7 Weight (Calculated Grams) 64217.4 [place] Body Weight 130 lbs % [place] Body Weight 137 Body Mass Index (BMI) 30.5 Weight Status Overweight GI Symptoms GI Symptoms None Last BM 1x 01/11 Cultural/Ethnic/Synagogue Belief None noted. Usual diet at home N/A Skin Integrity/Comment: Mode score 19 Current %PO Good (75-100%) Estimated Nutritional Goals BEE in Kcals: Adj wt of IBW Calories/Kcals/Kg 25 - 30 Kcals Calculated 1625 - 1950 Protein: Adj wt of IBW Protein g/k.8 - 1 Protein Calculated 52-65 gm Prtn Fluid: ml 1625 - 1950 Nutritional Problem No current Nutrition Prob Problem N/A Malnutrition Alert Is there a minimum of two criteria No selected? Query Text:Check all the applicable criteria. A minimum of two criteria are recommended for diagnosis of either severe or non-severe malnutrition. Malnutrition Related to Morbid Obesity Malnutrition related to morbid obesity No Intervention/Recommendation Comments Recommend continuing diet as prescribed. Expected Outcomes/Goals Expected Outcomes/Goals - Maintain 100% PO intake - Labs return to WNL - Maintain GI function, Weight , and skin integrity
[2019-01-22] MEDS: Artificial Tear Ophth Oint 3.5 Gm Tube EACH EYE SCH (09:22)
[2019-01-22] MEDS: Multivitamin Tab PO SCH (09:22)
--- NOTE | 2019-01-22 13:30 | Internal Medicine Prog Note ---
Internal Medicine Subjective - Subjective Patient seen and examined:: with staff, chart reviewed Patient is:: awake, verbal, interactive Per staff patient has:: no adverse event, no episodes of fall, tolerating meds Internal Medicine Objective - Results Result Diagrams: 01/09/19 18:00 01/09/19 18:00 Recent Labs: Laboratory Last Values WBC 12.5 Th/cmm (4.8-10.8) H 01/09/19 18:00 RBC 5.30 Mil/cmm (3.80-5.80) 01/09/19 18:00 Hgb 16.3 gm/dL (12-16) 01/09/19 18:00 Hct 49.1 % (41.0-60) 01/09/19 18:00 MCV 92.7 fl (80-99) 01/09/19 18:00 MCH 30.8 pg (27.0-31.0) 01/09/19 18:00 MCHC Differential 33.2 pg (28.0-36.0) 01/09/19 18:00 RDW 14.7 % (11.5-20.0) 01/09/19 18:00 Plt Count 187 Th/cmm (150-400) 01/09/19 18:00 MPV 8.2 fl 01/09/19 18:00 Neutrophils % 78.5 % (40.0-80.0) 01/09/19 18:00 Lymphocytes % 17.9 % (20.0-50.0) L 01/09/19 18:00 Monocytes % 3.2 % (2.0-10.0) 01/09/19 18:00 Eosinophils % 0.4 % (0.0-5.0) 01/09/19 18:00 Basophils % 0.0 % (0.0-2.0) 01/09/19 18:00 Sodium 139 mEq/L (136-145) 01/09/19 18:00 Potassium 4.3 mEq/L (3.5-5.1) 01/09/19 18:00 Chloride 104 mEq/L (98-107) 01/09/19 18:00 Carbon Dioxide 24.7 mEq/L (21.0-31.0) 01/09/19 18:00 Anion Gap 14.6 (7.0-16.0) 01/09/19 18:00 BUN 35 mg/dL (7-25) H 01/09/19 18:00 Creatinine 1.3 mg/dL (0.7-1.3) 01/09/19 18:00 Est GFR ( Amer) TNP 01/09/19 18:00 Est GFR (Non-Af Amer) TNP 01/09/19 18:00 BUN/Creatinine Ratio 26.9 01/09/19 18:00 Glucose 121 mg/dL (70-105) H 01/09/19 18:00 Calcium 9.6 mg/dL (8.6-10.3) 01/09/19 18:00 Total Bilirubin 0.4 mg/dL (0.3-1.0) 01/09/19 18:00 AST 24 U/L (13-39) 01/09/19 18:00 ALT 21 U/L (7-52) 01/09/19 18:00 Alkaline Phosphatase 71 U/L (34-104) 01/09/19 18:00 Troponin I < 0.01 ng/mL (0.01-0.05) L 01/09/19 18:00 Total Protein 7.5 gm/dL (6.0-8.3) 01/09/19 18:00 Albumin 3.9 gm/dL (4.2-5.5) L 01/09/19 18:00 Globulin 3.6 gm/dL 01/09/19 18:00 Albumin/Globulin Ratio 1.1 (1.0-1.8) 01/09/19 18:00 Triglycerides 119 mg/dL (<150) 01/09/19 18:00 Cholesterol 192 mg/dL (<200) 01/09/19 18:00 LDL Cholesterol Direct 125 mg/dL (75-193) 01/09/19 18:00 HDL Cholesterol 66 mg/dL (23-92) 01/09/19 18:00 TSH 5.02 uIU/ml (0.34-5.60) 01/09/19 18:00 Urine Source CLEAN C 01/09/19 17:30 Urine Color YELLOW 01/09/19 17:30 Urine Clarity CLEAR (CLEAR) 01/09/19 17:30 Urine pH 5.5 (4.6 - 8.0) 01/09/19 17:30 Ur Specific [place] 1.020 (1.005-1.030) 01/09/19 17:30 Urine Protein NEGATIVE mg/dL (NEGATIVE) 01/09/19 17:30 Urine Glucose (UA) NEGATIVE mg/dL (NEGATIVE) 01/09/19 17:30 Urine Ketones NEGATIVE mg/dL (NEGATIVE) 01/09/19 17:30 Urine Blood NEGATIVE (NEGATIVE) 01/09/19 17:30 Urine Nitrate NEGATIVE (NEGATIVE) 01/09/19 17:30 Urine Bilirubin NEGATIVE (NEGATIVE) 01/09/19 17:30 Urine Urobilinogen 0.2 E.U./dL (0.2 - 1.0) 01/09/19 17:30 Ur Leukocyte Esterase NEGATIVE (NEGATIVE) 01/09/19 17:30 Urine RBC NONE SEEN /hpf (0-5) 01/09/19 17:30 Urine WBC 0-2 /hpf (0-5) 01/09/19 17:30 Ur Epithelial Cells NONE SEEN /lpf (FEW) 01/09/19 17:30 Urine Bacteria FEW /hpf (NONE SEEN) 01/09/19 17:30 Salicylates < 25.0 mg/L (30.0-100.0) L 01/09/19 18:00 Urine Opiates Screen NEGATIVE (NEGATIVE) 01/09/19 17:30 Urine Methadone Screen NEGATIVE (NEGATIVE) 01/09/19 17:30 Acetaminophen < 10.0 ug/mL (10.0-30.0) L 01/09/19 18:00 Ur Barbiturates Screen NEGATIVE (NEGATIVE) 01/09/19 17:30 Ur Tricyclics Screen NEGATIVE (NEGATIVE) 01/09/19 17:30 Ur Phencyclidine Scrn NEGATIVE (NEGATIVE) 01/09/19 17:30 Amphetamines Screen NEGATIVE (NEGATIVE) 01/09/19 17:30 U Methamphetamines Scrn NEGATIVE (NEGATIVE) 01/09/19 17:30 U Benzodiazepines Scrn NEGATIVE (NEGATIVE) 01/09/19 17:30 U Cocaine Metab Screen NEGATIVE (NEGATIVE) 01/09/19 17:30 U Cannabinoids Screen NEGATIVE (NEGATIVE) 01/09/19 17:30 Ethyl Alcohol < 10 mg/dL (0-10) 01/09/19 18:00 RPR NONREACTIVE (NONREACTIVE) 01/09/19 18:00 - Physical Exam Vitals and I&O: Vital Signs Temp 98.2 F 01/22/19 06:12 Pulse 56 01/22/19 06:12 Resp 19 01/22/19 06:12 BP 108/68 01/22/19 06:12 Pulse Ox 98 01/22/19 06:12 Intake & Output 01/21/19 01/22/19 01/22/19 18:59 06:59 18:59 Intake Total 360 Balance 360 Intake: Oral 360 Other: # Voids 2 1 # Bowel Movements 0 0 Active Medications: Current Medications Acetaminophen (Tylenol) 650 mg PO Q4HR PRN PRN Reason: Mild Pain 1-3/ Temp above 100 Stop: 03/10/19 22:35 Al Hydrox/Mg Hydrox/Simethicone (Maalox) 30 ml PO Q4HR PRN PRN Reason: GI DISTRESS Stop: 03/10/19 22:35 Artificial Tears (Lubrifresh Ophth Oint) 1 appl EACH EYE BID JERALD Stop: 03/14/19 08:59 Last Admin: 01/22/19 09:22 Dose: 1 appl Fluocinonide (Lidex 0.05%) 1 appl TP BID JERALD Stop: 03/18/19 16:59 Last Admin: 01/22/19 09:22 Dose: 1 appl Lorazepam (Ativan) 0.5 mg PO Q4HR PRN; Protocol PRN Reason: Anxiety Stop: 02/08/19 22:35 Last Admin: 01/19/19 02:19 Dose: 0.5 mg Magnesium Hydroxide (Milk Of Magnesia) 30 ml PO HS PRN PRN Reason: Constipation Multivitamins/Vitamin C (Theragran) 1 tab PO DAILY JERALD Stop: 03/11/19 08:59 Last Admin: 01/22/19 09:22 Dose: 1 tab Quetiapine Fumarate (Seroquel) 37.5 mg PO BID JERALD; Protocol Stop: 03/18/19 08:59 Last Admin: 01/22/19 09:22 Dose: 37.5 mg Zolpidem Tartrate (Ambien) 5 mg PO HS PRN PRN Reason: Insomnia Stop: 03/10/19 22:35 Last Admin: 01/19/19 20:59 Dose: 5 mg HEENT: NC/AT, PERRLA Neck: Supple, No JVD Lungs: CTAB Abdomen: soft, non-tender, non-distended, positive bowel sound Extremities: excoriation Neurological: no change - Procedures Procedures: Procedures Procedure Code Date EXCISION OF R LOW LEG SUBCU/FASCIA, OPEN APPROACH [id number] 09/21/18 GROUP PSYCHOTHERAPY [id number] 09/28/15 GROUP PSYCHOTHERAPY [id number] 09/28/15 Internal Medicine Assmt/Plan - Assessment Assessment: htn chf sz dementia djd gait instability skin rashes - Plan Plan: monitor fluid status titrate bp meds seizure precaution fall risk cpm topical cream added Nutritional Asmnt/Malnutr-PDOC - Dietary Evaluation Malnutrition Findings (Please click <Entered> for more info): Nutritional Asmnt/Malnutrition Start: 01/12/19 11: 45 Text: Status: Complete Freq: Protocol: Document 01/12/19 11:45 RHAQUE (Rec: 01/12/19 11:52 [email or web address]) Nutritional Asmnt/Malnutrition Patient General Information Nutritional Screening Moderate Risk Diagnosis Acute Psychosis Pertinent Medical Hx/Surgical Hx Seizure disorder, CHF, HTN, DJD, Psychiatric disorder, Dementia, Fall risk Subjective Information RN notes address noncompliance with meds. Spoke to ANAND Bahena , who described a pt who consumes his meals quite diligently. ~100% PO intake across the board, about 50% of snacks. Transferred from [facility] because of noncompliance. Upon visiting the Pt, he pointed to his ear, said he couldn't hear what i was asking him. When i repeated myself, the pt launched into a diatribe about how he was being treated and also about a statue of his grandfather that needed to be completed in [place]. I left when it became clear he had no desire to anwer dietary questions. Current Diet Order/ Nutrition Support Cardiac Patient / S.O Not Indicated Pertinent Medications Vit C, Seroquel, Ambien, MOM, Maalox Pertinent Labs BUN 35 H, Gluc 121 H, Alb 3.9 L Nutritional Hx/Data Height 1.63 m Height (Calculated Centimeters) 162.6 Current Weight (lbs) 80.739 kg Weight (Calculated Kilograms) 80.7 Weight (Calculated Grams) 75878.4 [place] Body Weight 130 lbs % [place] Body Weight 137 Body Mass Index (BMI) 30.5 Weight Status Overweight GI Symptoms GI Symptoms None Last BM 1x 01/11 Cultural/Ethnic/Restorationist Belief None noted. Usual diet at home N/A Skin Integrity/Comment: Mode score 19 Current %PO Good (75-100%) Estimated Nutritional Goals BEE in Kcals: Adj wt of IBW Calories/Kcals/Kg 25 - 30 Kcals Calculated 1625 - 1950 Protein: Adj wt of IBW Protein g/k.8 - 1 Protein Calculated 52-65 gm Prtn Fluid: ml 1625 - 1950 Nutritional Problem No current Nutrition Prob Problem N/A Malnutrition Alert Is there a minimum of two criteria No selected? Query Text:Check all the applicable criteria. A minimum of two criteria are recommended for diagnosis of either severe or non-severe malnutrition. Malnutrition Related to Morbid Obesity Malnutrition related to morbid obesity No Intervention/Recommendation Comments Recommend continuing diet as prescribed. Expected Outcomes/Goals Expected Outcomes/Goals - Maintain 100% PO intake - Labs return to WNL - Maintain GI function, Weight , and skin integrity
--- NOTE | 2019-01-22 15:07 | Discharge Summary ---
DATE OF DISCHARGE: 01/22/2019 DATE OF DISCHARGE: 01/22/2019. PATIENT'S AGE: 73. SEX: Male. PHYSICIAN: Dr. Philippe. FINAL DIAGNOSIS/PRIMARY DIAGNOSIS: Bipolar disorder, manic episode, with psychotic features. REASON FOR HOSPITALIZATION: The patient was admitted to the hospital from [facility] because the patient was extremely agitated and in irritable mood and also was suspicious and paranoid and easily agitated and was unable to provide any safe plan for self-care. HOSPITAL COURSE: The patient continues to be in irritable mood. The patient also is easily agitated. The patient was started on Seroquel and the dose adjusted to 37.5 mg twice a day. Gradually, the patient's affect was brighter. The patient was less irritable and less agitated. The patient also was able to follow instructions and directions. He was not suicidal or homicidal and he was able to comply with taking medications and with directions. The patient was discharged from the hospital. PHYSICAL EXAMINATION: The patient showed no major medical problems while in the hospital. AFTER DISCHARGE PLANS: The patient discharged from the hospital with plans to continue his treatment as an outpatient in the [facility]. EXPECTED OUTCOME AFTER DISCHARGE: Fair if the patient continues with his outpatient treatment and follow up with discharge plans. [facility]# [id number]
--- NOTE | 2019-01-22 15:37 | Progress Notes ---
DATE: SUBJECTIVE: Chart reviewed and the patient interviewed. Also discussed the patient's condition with the staff and reviewed records and labs. The patient continued to be confused. Also, still guarded and paranoid. The patient also accusing his roommate with messing up his bathroom. The patient also is still withdrawn and interacting minimally with others. He also is refusing to take Seroquel 37.5 mg twice a day. Otherwise, the patient is compliant with taking his medications, with no side effects of medications. ASSESSMENT: The patient is still suspicious and paranoid and needs close monitoring. TREATMENT PLAN: Continue to monitor his behavior and his condition and continue adjusting psychotropic medications. [facility]# [id number]
== END 2019-01-22 15:00 | DRG 885 ==
LOC: ER 17:20 → GERO 19:02
PROVIDERS: ADMIT Psychiatry & Neurology Psychiatry; ATTEND Psychiatry & Neurology Psychiatry
DX: F31.2 Bipolar disorder, current episode manic severe with psychotic features (principal); I11.0 Hypertensive heart disease with heart failure; F23 Brief psychotic disorder; G40.909 Epilepsy, unspecified, not intractable, without status epilepticus; I50.9 Heart failure, unspecified; M19.90 Unspecified osteoarthritis, unspecified site; F03.90 Unspecified dementia, unspecified severity, without behavioral disturbance, psychotic disturbance, mood disturbance, and anxiety; I25.10 Atherosclerotic heart disease of native coronary artery without angina pectoris; E78.5 Hyperlipidemia, unspecified; F31.9 Bipolar disorder, unspecified; R21 Rash and other nonspecific skin eruption; R26.9 Unspecified abnormalities of gait and mobility; Z82.49 Family history of ischemic heart disease and other diseases of the circulatory system; Z91.81 History of falling
CPT/HCPCS: 36415-UA; 80053-TC; 80061-TC; 80307; 80320-TC; 80329-TC; 81001-TC; 83036-90; 84443-TC; 84484-TC; 85025-TC; 86592-TC; Z7610